=== PATIENT | male | born 1950 | race Caucasian/White ===

== ENCOUNTER 2023-12-28 21:49 | Inpatient (IN) | payer MEDICARE, OTHER, SELFPAY ==
[2023-12-28 14:54] VITALS: BP 143/79
[2023-12-28 15:17] LABS: % Basophils 0.2 % (0-2); % Eosinophils 0.4 % (0-6); % Immature Granulocytes 0.2 % (0-0.5); % Lymphocytes 20.8 % (20.5-51.1); % Monocytes 12.2 % (1.7-9.3); % Neutrophils 66.2 % (42.2-75.2); Absolute Lymphocytes 1.9 10^3/uL (1.2-3.4); Absolute Monocytes 1.1 10^3/uL (0.1-0.6); Hematocrit 41.5 % (39.0-52.0); Mean Corp Hgb Conc. 33.7 g/dL (33.0-37.0); Mean Corpuscular Hgb 32.1 pg (27.0-31.0); Mean Corpuscular Volume 95.2 fL (80.0-94.0); Mean Platelet Volume 9.3 fL (7.4-10.4); Nucleated Red Blood Cells % 0 % (-); Platelet Count 180 10^3/uL (130-400); Red Blood Cell Count 4.36 10^6/uL (4.70-6.10); Red Cell Dist. Width 12.8 % (11.5-14.5); White Blood Cell Count 9.1 10^3/uL (4.8-10.8)
[2023-12-28 15:33] LABS: COVID-19 Antigen Negative (Negative)
[2023-12-28 15:36] LABS: ALT (SGPT) 30 U/L (0-50); AST (SGOT) 34 U/L (17-59); Albumin 3.9 g/dl (3.5-5.0); Alkaline Phosphatase 78 U/L (38-126); Blood Urea Nitrogen 13 mg/dl (9-20); Calcium 8.9 mg/dl (8.4-10.2); Carbon Dioxide 29 mmol/L (22-30); Chloride 102 mmol/L (98-107); Glucose 100 mg/dl (70-99); Potassium 4.3 mmol/L (3.5-5.1); Sodium 136 mmol/L (135-145); Total Protein 6.7 g/dl (6.3-8.2); eGFR > 60.00
[2023-12-28] MEDS: DECADRON 8 MG IV (18:20)
[2023-12-28] MEDS: NSS 500 IV (18:26)
[2023-12-28] MEDS: DUONEB 3 ML INHALATION (18:26)
[2023-12-28 18:29] LABS: D-Dimer 0.73 ug/mlFEU (0.00-0.50)
[2023-12-28 19:27] VITALS: BP 137/71
--- NOTE | 2023-12-28 20:21 | ED.GENMED ---
Addendum entered and electronically signed by Jann Hightower MD 12/31/23 06:06:
Discussed antibiotic choices with patient and . Allergic to penicillin. This is caused a rash. Not even 100% sure this was the primary cause of the rash. Feel a cephalosporin would be safe. Risk-benefit explained
Original Note:
History of Present Illness
General
Chief Complaint: Breathing Problem
Source: patient and spouse
Exam Limitations: none
Time Seen by Provider: 12/28/23 17:54
Travel History
Have you had any contact with someone who has COVID-19?: No
Do you have any symptoms of coronavirus? Fever > 100 degrees, chills, cough, shortness of breath, sore throat, loss of taste or smell, muscle aches, or headache?: Yes
Symptoms:: cough
History of Present Illness
History of Present Illness:
Patient being treated for pneumonia with azithromycin. Symptoms have progressed however. Increased shortness of breath increased cough.
Past History
Past History
ED Past Medical History: HTN and Other (Crohn's disease)
Social History
Tobacco: Non-smoker
Personal:
Living: with family
Review of Systems
Review of Systems
All Other Systems: Not applicable
Constitutional: Reports chills
Respiratory: Reports cough; Denies hemoptysis
Cardiac: Reports no symptoms
ABD/GI: Reports no symptoms
Phy Exam
Physical Exam
Physical Exam:
GENERAL: Alert and oriented in no apparent distress
EYE: Orbits normal.
NECK: Supple, no significant adenopathy.
ENT: Pharynx without erythema
CARDIAC: Regular rate and rhythm without any obvious murmurs.
LUNGS: Minimal tachypnea at rest. Diffuse expiratory rhonchi with some rales at the left base. Expiratory wheezing
ABDOMEN: Soft, without focal tenderness or distention
NEUROLOGICAL: Alert and oriented , grossly non-focal
SKIN: Warm and dry, no rash or lesion, no discoloration, skin intact.
MUSCULOSKELETAL: No edema,no deformity.Good color
PSYCH: Normal and appropriate interaction.
Scores
Heart Failure Risk
Heart Failure Risk Score: Not Applicable
Course
Orders/Labs/Results
Orders:
Orders
12/28/23 15:04
COVID-19 Antigen Urgent
Source: Nasal Swab
Complete Blood Count/With Diff Urgent
Comprehensive Metabolic Panel Urgent
INF RAPID [Influenza A+B Rapid Molecular] Urgent
HOME Source: Nasal Swab
Specimen Description:
12/28/23 18:01
IV Insert/Care/Rem.- Treatment PRN
0.9% Sodium Chloride 500 ml [Nss] 500 ml IV BOLUS
Dexamethasone Sod Phosphate [Decadron] 8 mg IV NOW STA
Ipratropium/Albuterol Sulfate [Duoneb] 3 ml INHALATION R NOW ONE
12/28/23 18:09
D-Dimer Urgent
12/28/23 18:45
CT Chest Pe Study Urgent
Comment:
Reason For Exam: sob. pos dimer
12/28/23 20:14
Doxycycline Hyclate [Vibramycin] 100 mg 0.9% Sodium Chloride 250 ml [Nss] 250 ml IV NOW
12/28/23 20:15
Blood Culture Q30M
HOME Source: Blood/Venous
Specimen Description:
12/28/23 20:19
LevoFLOXacin [Levaquin] 750 mg PO NOW STA
12/28/23 20:45
Blood Culture Q30M
HOME Source: Blood/Venous
Specimen Description:
Abnormal Lab Results
12/28/23 12/28/23
15:04 18:09
RBC 4.36 L 10^6/uL
(4.70-6.10)
MCV 95.2 H fL
(80.0-94.0)
MCH 32.1 H pg
(27.0-31.0)
Absolute Monos (auto) 1.1 H 10^3/uL
(0.1-0.6)
Monocytes % 12.2 H %
(1.7-9.3)
D-Dimer 0.73 H ug/mlFEU
(0.00-0.50)
Glucose 100 H mg/dl
(70-99)
Total Bilirubin 2.0 H mg/dl
(0.2-1.3)
12/28/23 15:04
12/28/23 15:04
Vital Signs
Initial and Last Documented VS:
Initial Vital Signs
Temp Pulse Resp BP Pulse Ox
98.7 F 75 20 143/79 94
12/28/23 14:54 12/28/23 14:54 12/28/23 14:54 12/28/23 14:54 12/28/23 14:54
Last Documented Vital Signs
Temp Pulse Resp BP Pulse Ox
98.7 F 116 22 137/71 92
12/28/23 14:54 12/28/23 18:44 12/28/23 18:44 12/28/23 19:27 12/28/23 19:30
*Radiology
Radiology exam reviewed: radiology read reviewed (Left lower lobe pneumonia)
*Pulse Oximetry
Patient hypoxic: no
*Critical Care Note
Total Time (30-74mins, 75-104mins- exclusive of procedures): Not Applicable
Update Note
Update Note:
Patient with persistent left lower lobe pneumonia progressing despite azithromycin. In the send patient is immunosuppressed from his Crohn's disease medications. Warrants admission and further care
ED Attending Note
-
Portions of this chart may have been created with voice recognition software.� Occasional wrong word or��sound alike� substitutions may have occurred due to the inherent limitations of voice recognition software.
Discharge Plan
Departure
Patient Disposition: Admit
Date of Disposition: 12/28/23
Time of Disposition: 20:22
Presentation/result/management discussed w/ accepting MD/DO: Hospitalist
Discharge Problem:
Persistent pneumonia
Prescriptions:
No Action
azithromycin 250 mg Tablet
0 mg PO .COMPLEX
Rx Instructions:
For 250 mg dose pack: take 500 mg today (day 1), then 250 mg for 4 days (days 2-5)
metoprolol succinate [Toprol XL] 50 mg Tablet Extended Release 24 Hr
50 mg PO DAILY
amlodipine [Norvasc] 5 mg Tablet
5 mg PO DAILY
famotidine [Pepcid] 20 mg Tablet
20 mg PO DAILY
Stelara 90 mg/mL Syringe
90 mg SC Q6W
Myrbetriq 50 mg Tablet Extended Release 24 Hr
50 mg PO DAILY
Referrals:
Neelam Ramsey MD [Family Provider] -
Interventions
Interventions:
*Risk Screen - Suicide Last Done: 12/28/23 14:54
*General Assessment Last Done: 12/28/23 14:54
*Neglect/Abuse Screening Last Done: 12/28/23 14:54
ED- Cardiac Assessment Last Done: 12/28/23 19:45
ED- Pulmonary Assessment Last Done: 12/28/23 19:45
--- NOTE | 2023-12-28 20:39 | ED.GENMED ---
History of Present Illness
General
Chief Complaint: Breathing Problem
Time Seen by Provider: 12/28/23 17:54
Travel History
Have you had any contact with someone who has COVID-19?: No
Do you have any symptoms of coronavirus? Fever > 100 degrees, chills, cough, shortness of breath, sore throat, loss of taste or smell, muscle aches, or headache?: Yes
Symptoms:: cough
Past History
Past History
ED Past Medical History: HTN and Other (Crohn's disease)
Social History
Tobacco: Non-smoker
Personal:
Living: with family
Course
Orders/Labs/Results
Orders:
Orders
12/28/23 15:04
COVID-19 Antigen Urgent
Source: Nasal Swab
Complete Blood Count/With Diff Urgent
Comprehensive Metabolic Panel Urgent
INF RAPID [Influenza A+B Rapid Molecular] Urgent
HOME Source: Nasal Swab
Specimen Description:
12/28/23 18:01
IV Insert/Care/Rem.- Treatment PRN
0.9% Sodium Chloride 500 ml [Nss] 500 ml IV BOLUS
Dexamethasone Sod Phosphate [Decadron] 8 mg IV NOW STA
Ipratropium/Albuterol Sulfate [Duoneb] 3 ml INHALATION R NOW ONE
12/28/23 18:09
D-Dimer Urgent
12/28/23 18:45
CT Chest Pe Study Urgent
Comment:
Reason For Exam: sob. pos dimer
12/28/23 20:14
Doxycycline Hyclate [Vibramycin] 100 mg 0.9% Sodium Chloride 250 ml [Nss] 250 ml IV NOW
12/28/23 20:15
Blood Culture Q30M
HOME Source: Blood/Venous
Specimen Description:
12/28/23 20:19
LevoFLOXacin [Levaquin] 750 mg PO NOW STA
12/28/23 20:38
CefTRIAXone [Rocephin] 1,000 mg IV NOW STA
Doxycycline 100 mg IVPB NOW Doxycycline Hyclate [Vibramycin] 100 mg 0.9% Sodium Chloride 250 ml [Nss] 250 ml IV NOW
12/28/23 20:45
Blood Culture Q30M
HOME Source: Blood/Venous
Specimen Description:
Abnormal Lab Results
12/28/23 12/28/23
15:04 18:09
RBC 4.36 L 10^6/uL
(4.70-6.10)
MCV 95.2 H fL
(80.0-94.0)
MCH 32.1 H pg
(27.0-31.0)
Absolute Monos (auto) 1.1 H 10^3/uL
(0.1-0.6)
Monocytes % 12.2 H %
(1.7-9.3)
D-Dimer 0.73 H ug/mlFEU
(0.00-0.50)
Glucose 100 H mg/dl
(70-99)
Total Bilirubin 2.0 H mg/dl
(0.2-1.3)
12/28/23 15:04
12/28/23 15:04
Vital Signs
Initial and Last Documented VS:
Initial Vital Signs
Temp Pulse Resp BP Pulse Ox
98.7 F 75 20 143/79 94
12/28/23 14:54 12/28/23 14:54 12/28/23 14:54 12/28/23 14:54 12/28/23 14:54
Last Documented Vital Signs
Temp Pulse Resp BP Pulse Ox
98.7 F 116 22 137/71 92
12/28/23 14:54 12/28/23 18:44 12/28/23 18:44 12/28/23 19:27 12/28/23 19:30
Update Note
Update Note:
Patient's penicillin allergy is a rash while in the hospital for 30 days. Totally unsure whether this was even the cause of the rash. It was not a life-threatening allergic reaction. Feel cephalosporin is reasonable. Also will add doxycycline.
Discussed with hospitalist. Also discussed with family. Was considering a Levaquin but with the azithromycin and QT possibilities feel the above is a better choice
ED Attending Note
-
Portions of this chart may have been created with voice recognition software.� Occasional wrong word or��sound alike� substitutions may have occurred due to the inherent limitations of voice recognition software.
Discharge Plan
Departure
Patient Disposition: Admit
Date of Disposition: 12/28/23
Time of Disposition: 20:22
Presentation/result/management discussed w/ accepting MD/DO: Hospitalist
Discharge Problem:
Persistent pneumonia
Prescriptions:
No Action
azithromycin 250 mg Tablet
0 mg PO .COMPLEX
Rx Instructions:
For 250 mg dose pack: take 500 mg today (day 1), then 250 mg for 4 days (days 2-5)
metoprolol succinate [Toprol XL] 50 mg Tablet Extended Release 24 Hr
50 mg PO DAILY
amlodipine [Norvasc] 5 mg Tablet
5 mg PO DAILY
famotidine [Pepcid] 20 mg Tablet
20 mg PO DAILY
Stelara 90 mg/mL Syringe
90 mg SC Q6W
Myrbetriq 50 mg Tablet Extended Release 24 Hr
50 mg PO DAILY
Referrals:
Neelam Ramsey MD [Family Provider] -
Interventions
Interventions:
*Risk Screen - Suicide Last Done: 12/28/23 14:54
*General Assessment Last Done: 12/28/23 14:54
*Neglect/Abuse Screening Last Done: 12/28/23 14:54
ED- Cardiac Assessment Last Done: 12/28/23 19:45
ED- Pulmonary Assessment Last Done: 12/28/23 19:45
--- NOTE | 2023-12-28 21:16 | HPS.HSE ---
Family Physician
-
Family Physician: Neelam Ramsey MD
Chief Complaint
-
Cough
History of Present Illness
Patient is a 73y M with PMH significant for Crohn's disease, HTN and CKD who presents to ED complaining of cough x 4-5 days. Patient states that his symptoms started last with cough, sore throat and runny nose. He was seen by his PCP
the following day prescribed a Z-Pack. Patient states that his symptoms have since progressed. His cough is more severe and productive of thick. yellow mucus. He has had difficulty sleeping at night due to paroxysms of cough. He denies any
fevers / chills. No chest pain. No GI or complaints. Patient denies any specific sick contacts, recent travel, etc.
Medical History
Past Medical History
Past Medical History: Reports Other
Additional Past Medical History:
Crohn's Disease
Hypertension
CKD III
BPH
SHONA on CPAP
Past Surgical History: Reports Other
Additional Past Surgical History:
Total Colectomy
Multiple Ostomy Revisions
T&A
MOHS surgeries
Left TKA
Social History
Tobacco: Former Smoker (Quit smoking 12 years ago.)
Alcohol: Occasional
Drug: None
Personal:
Living: With Family
Family History
Family History: Not pertinent
Allergies / Home Medications
Allergies reflects when Allergies were last updated in [facility].
Home Medications with original date entered in [facility]
Allergy/Medication List:
Allergies
Allergy/AdvReac Type Severity Reaction Status Date / Time
mesalamine [From Pentasa] Allergy Rash Verified 12/28/23 14:53
olmesartan [From Benicar] Allergy Rash Verified 12/28/23 14:53
Penicillins Allergy Rash Verified 12/28/23 14:53
Sulfa (Sulfonamide Allergy Rash Verified 12/28/23 14:53
Antibiotics)
Home Medications
acetaminophen 325 mg tablet (Tylenol) 650 mg PO Q4HPRN PRN mild pain 12/28/23
amlodipine 5 mg tablet (Norvasc) 7.5 mg PO DAILY 12/28/23
azithromycin 250 mg tablet 0 mg PO .COMPLEX 12/28/23
codeine 20 mg-guaifenesin 200 mg/5 mL oral liquid 5 ml PO Q6HPRN PRN cough 12/28/23
cranberry 400 mg capsule 400 mg PO DAILY 12/28/23
cyanocobalamin (vitamin B-12) 1,000 mcg tablet 1,000 mcg PO DAILY 12/28/23
eplerenone 50 mg tablet 50 mg PO QPM 12/28/23
famotidine 20 mg tablet (Pepcid) 20 mg PO BID 12/28/23
guaifenesin 600 mg tablet, extended release 12 hr (Mucinex) 600 mg PO DAILY 12/28/23
loperamide 2 mg tablet 4 mg PO BID 12/28/23
metoprolol succinate 50 mg tablet,extended release 24 hr (Toprol XL) 50 mg PO DAILY 12/28/23
mirabegron 50 mg tablet,extended release 24 hr (Myrbetriq) 50 mg PO DAILY 12/28/23
solifenacin 10 mg tablet (Vesicare) 10 mg PO QPM 12/28/23
tadalafil 5 mg tablet (Cialis) 5 mg PO DAILY 12/28/23
therapeutic multivitamin 1 tab PO DAILY 12/28/23
ustekinumab 90 mg/mL subcutaneous syringe (Stelara) 90 mg SC Q6W 12/28/23
vitamins A,C,F-owiv-efiurh 2,148 mcg-113 mg-45 mg-17.4 mg tablet (PreserVision AREDS) 2 tab PO BID 12/28/23
Review of Systems
-
History Source: Patient
A 12 point ROS was completed and negative except as noted: Yes
Constitutional: Reports Fatigue; Denies Fever or Chills
EENT: Reports Sore Throat and Runny Nose
Respiratory: Reports Cough and Trouble Breathing; Denies Hemoptysis
Cardiac: Denies Chest Pain, Diaphoresis or Palpitations
Abdomen/GI: Denies Abdominal Pain, Nausea, Vomiting or Diarrhea
: Reports Frequency; Denies Dysuria, Flank Pain or Incontinence
Musculoskeletal: Denies Joint Pain
Neurological: Denies Dizzy or Headache
Psych: Denies Depression or Anxiety
Physical Exam
Vital Signs
Vital Signs
Temp Pulse Resp BP Pulse Ox
98.7 F 116 22 137/71 92
12/28/23 14:54 12/28/23 18:44 12/28/23 18:44 12/28/23 19:27 12/28/23 19:30
Physical Exam
General: Other (73y M in no acute distress.)
HEENT: Moist mucous membranes and PERRLA
Respiratory: Other (Coarse breath sounds at the L base. No wheezing / rales.)
Cardiac: S1/S2 and Regular Rhythm; No Murmur
GI: Soft, Non Tender, Non Distended, Normal Bowel Sounds and Other (Ostomy site is intact.)
Musculoskeletal: No Clubbing, No Cyanosis and No Edema
Neuro: AO x 3
Laboratory Results
-
12/28/23 15:04
12/28/23 15:04
Laboratory Results
Total Bilirubin 2.0 mg/dl (0.2-1.3) H 12/28/23 15:04
AST 34 U/L (17-59) 12/28/23 15:04
ALT 30 U/L (0-50) 12/28/23 15:04
Alkaline Phosphatase 78 U/L (38-126) 12/28/23 15:04
Impression/Plan
-
A/P: Patient is a 73y M with PMH significant for Crohn's disease, HTN and CKD who presents to ED complaining of cough x several days.
LLL Pneumonia
- Admit for further evaluation and treatment - having failed outpatient therapy with azithromycin.
- COVID / flu negative in the ED.
- IV abx with ceftriaxone and doxycycline.
- Supportive care with mucolytics, nebs, cough suppressant, etc.
- Follow for clinical improvement.
Benign Hypertension
Stable. Continue home meds with holding parameters.
CKD III
- Renal function appears normal at present.
- Follow for any changes.
Crohn's Disease
- Stable No acute GI symptoms / complaints.
- Routine ostomy care.
- Maintained on Stelara q 6 weeks - resume after discharge.
DVT Prophylaxis: Lovenox
Code Status: Full
[2023-12-28] MEDS: ROCEPHIN 1000 MG IV (21:58)
[2023-12-28] MEDS: VIBRAMYCIN 260 MG IV (22:32)
[2023-12-28 23:10] VITALS: BMI 28.5
[2023-12-29] MEDS: VENTOLIN NEBULES 2.5 MG INH ×2 (05:54→18:30)
[2023-12-29 06:15] LABS: Hematocrit 39.1 % (39.0-52.0); Hemoglobin 13.7 g/dL (13.0-18.0); Mean Corpuscular Hgb 31.8 pg (27.0-31.0); Mean Corpuscular Volume 90.7 fL (80.0-94.0); Mean Platelet Volume 9.3 fL (7.4-10.4); Platelet Count 203 10^3/uL (130-400); Red Blood Cell Count 4.31 10^6/uL (4.70-6.10); Red Cell Dist. Width 12.6 % (11.5-14.5); White Blood Cell Count 10.3 10^3/uL (4.8-10.8)
[2023-12-29 06:42] LABS: Blood Urea Nitrogen 18 mg/dl (9-20); Calcium 9.4 mg/dl (8.4-10.2); Carbon Dioxide 25 mmol/L (22-30); Chloride 102 mmol/L (98-107); Estimated Creatinine Clearance 67 ml/min; Glucose 156 mg/dl (70-99); Potassium 3.9 mmol/L (3.5-5.1); Sodium 141 mmol/L (135-145); eGFR > 60.00
[2023-12-29] MEDS: MUCINEX 1200 MG PO ×2 (09:09→21:26)
[2023-12-29] MEDS: TOPROL XL 50 MG PO (09:09)
[2023-12-29] MEDS: PEPCID 20 MG PO ×2 (09:10→21:26)
[2023-12-29] MEDS: NORVASC 7.5 MG PO (09:10)
--- NOTE | 2023-12-29 09:35 | W.PN.HOSP.TC ---
Today's Communication/Plan
-
continue current plan of care
Assessment / Plan
Assessment / Plan
Assessment:
LLL Pneumonia
- Admit for further evaluation and treatment - having failed outpatient therapy with azithromycin.
- COVID/flu negative in the ED.
- IV Abx with ceftriaxone and doxycycline, day 1
- Supportive care with mucolytics, nebs, cough suppressant, etc.
- Follow for clinical improvement.
Benign Hypertension
- Stable.�continue home meds with holding parameters.
CKD III
- Renal function appears normal at present.
- Follow for any changes.
Crohn's Disease
- Stable. No acute GI symptoms / complaints.
- Routine ostomy care.
- Maintained on Stelara q 6 weeks - resume after discharge.
- continue Imodium
DVT Prophylaxis:�Lovenox
Code Status:�Full
Anticipated Discharge: Within 24 hours
Subjective/Interval History
-
Date of Service: December 29, 2023
he reports improvement in SOB, less cough, less fatigue
Objective Data
-
Labs:
Laboratory Results
12/29/23
05:49
WBC 10.3
Hgb 13.7
Hct 39.1
Plt Count 203
Sodium 141
Potassium 3.9
Chloride 102
Carbon Dioxide 25
BUN 18
Creatinine 1.0
Glucose 156 H
Calcium 9.4
Vital Signs:
Vital Signs
Temp Pulse Resp BP Pulse Ox
98.4 F 116 22 137/71 94
12/29/23 08:40 12/28/23 18:44 12/28/23 18:44 12/28/23 19:27 12/29/23 08:40
Physical Exam
-
General: No Apparent Distress
HEENT: Normocephalic and Atraumatic
Respiratory: Rhonchi and Decreased Breath Sounds; Negative Wheezes
Cardiac: Regular Rhythm and S1/S2
GI: Soft
Genito-urinary: No Costovertebral Tender
Musculoskeletal: No Edema
Neuro: AO x 3
Hematologic / Lymphatic: No Lymphadenopathy
Psych: Calm
Data Reviewed
-
Total Time Spent with Patient (in minutes): 45
Labs: Labs Reviewed by me
[2023-12-29] MEDS: THERAGRAN 1 TABLET PO (10:33)
[2023-12-29] MEDS: VIBRAMYCIN 260 MG IV (10:33)
[2023-12-29] MEDS: IMODIUM 4 MG PO ×2 (10:33→21:25)
[2023-12-29] MEDS: MYRBETRIQ EXTENDED RELEASE 50 MG PO (14:47)
[2023-12-29] MEDS: INSPRA 50 MG PO (18:13)
[2023-12-29] MEDS: LOVENOX 40 MG SC (18:14)
[2023-12-29] MEDS: DETROL LA 4 MG PO (18:14)
[2023-12-29 21:13] VITALS: BP 156/78
[2023-12-29] MEDS: STERILE WATER FOR INJECTION 10 ML IV (21:26)
[2023-12-29] MEDS: VIBRAMYCIN 100 MG PO (21:26)
[2023-12-29] MEDS: ROCEPHIN 1000 MG IV (21:26)
[2023-12-29 23:23] VITALS: BP 126/77; BP 136/77; BP 142/76; PULSE 101; PULSE 76; PULSE 88
[2023-12-30 05:25] VITALS: BMI 28.7
[2023-12-30 07:30] VITALS: BP 128/75
[2023-12-30 07:51] LABS: Hematocrit 35.1 % (39.0-52.0); Hemoglobin 12.2 g/dL (13.0-18.0); Mean Corp Hgb Conc. 34.8 g/dL (33.0-37.0); Mean Corpuscular Hgb 31.6 pg (27.0-31.0); Mean Corpuscular Volume 90.9 fL (80.0-94.0); Mean Platelet Volume 9.5 fL (7.4-10.4); Platelet Count 205 10^3/uL (130-400); Red Blood Cell Count 3.86 10^6/uL (4.70-6.10)
[2023-12-30] MEDS: IMODIUM 4 MG PO (08:37)
[2023-12-30] MEDS: THERAGRAN 1 TABLET PO (08:38)
[2023-12-30] MEDS: PEPCID 20 MG PO (08:38)
[2023-12-30] MEDS: MUCINEX 1200 MG PO (08:38)
[2023-12-30] MEDS: TOPROL XL 50 MG PO (08:38)
[2023-12-30] MEDS: NORVASC 7.5 MG PO (08:38)
[2023-12-30] MEDS: VIBRAMYCIN 100 MG PO (08:38)
[2023-12-30 08:50] LABS: Blood Urea Nitrogen 22 mg/dl (9-20); Calcium 8.6 mg/dl (8.4-10.2); Carbon Dioxide 25 mmol/L (22-30); Chloride 106 mmol/L (98-107); Estimated Creatinine Clearance 61 ml/min; Glucose 90 mg/dl (70-99); Potassium 3.8 mmol/L (3.5-5.1); Sodium 141 mmol/L (135-145); eGFR > 60.00
--- NOTE | 2023-12-30 10:10 | W.PN.HOSP.TC ---
Today's Communication/Plan
-
dc home
PCP f/u 1 week
Assessment / Plan
Assessment / Plan
Assessment:
LLL Pneumonia
- Admit for further evaluation and treatment - having failed outpatient therapy with azithromycin.
- COVID/flu negative in the ED.
- DC on Cefdinir/Doxy to complete 7 total days
- Supportive care with mucolytics, nebs, cough suppressant, etc.
- Follow for clinical improvement.
Benign Hypertension
- Stable.�continue home meds with holding parameters.
CKD III
- Renal function appears normal at present.
- Follow for any changes.
Crohn's Disease
- Stable. No acute GI symptoms / complaints.
- Routine ostomy care.
- Maintained on Stelara q 6 weeks - resume after discharge.
- continue Imodium
DVT Prophylaxis:�Lovenox
Code Status:�Full
More than 30 minutes spent in discharge including
Final examination of the patient
Summarizing hospital stay
Instructions for continuing care to all relevant caregivers
Preparation of discharge records, prescriptions, and referral forms
Total time spent (in minutes): 40
Anticipated Discharge: Today
Subjective/Interval History
-
Date of Service: December 30, 2023
feels well no complaints
Objective Data
-
Labs:
Laboratory Results
12/30/23 12/30/23
07:05 07:06
WBC 12.0 H
Hgb 12.2 L
Hct 35.1 L
Plt Count 205
Sodium 141
Potassium 3.8
Chloride 106
Carbon Dioxide 25
BUN 22 H
Creatinine 1.1
Glucose 90
Calcium 8.6
Vital Signs:
Vital Signs
Temp Pulse Resp BP Pulse Ox
98.4 F 80 18 128/75 92
12/30/23 07:30 12/30/23 07:30 12/30/23 07:30 12/30/23 07:30 12/30/23 07:30
I&O
12/29/23 12/30/23 12/31/23
06:59 06:59 06:59
Intake Total 480 / 480
Balance 480 / 480
Physical Exam
-
General: No Apparent Distress
HEENT: Normocephalic and Atraumatic
Respiratory: Negative Wheezes
Cardiac: Regular Rhythm and S1/S2
GI: Soft
Genito-urinary: No Costovertebral Tender
Musculoskeletal: No Edema
Neuro: AO x 3
Hematologic / Lymphatic: No Lymphadenopathy
Psych: Calm
Data Reviewed
-
Total Time Spent with Patient (in minutes): 45
Labs: Labs Reviewed by me
[2023-12-30] MEDS: VENTOLIN NEBULES 2.5 MG INH (10:13)
--- NOTE | 2023-12-30 10:15 | W.DS.TRANS ---
DC Summary - Home Health Travel Pt
-
Discharge Instructions:
Discharge Diagnosis/Procedures community acquired pneumonia
Diet Regular
Activity As tolerated
Bathing Restrictions None
Instructions:
Stand-Alone Forms:
Changes to Home Medications: Yes
Discharge Medications:
DC Medications w/original date entered in [employer]
acetaminophen 325 mg tablet (Tylenol) 650 mg PO Q4HPRN PRN mild pain 12/28/23
amlodipine 5 mg tablet (Norvasc) 7.5 mg PO DAILY Blood Pressure 12/28/23
codeine 20 mg-guaifenesin 200 mg/5 mL oral liquid 5 ml PO Q6HPRN PRN cough 12/28/23
cranberry 400 mg capsule 400 mg PO DAILY Supplement 12/28/23
cyanocobalamin (vitamin B-12) 1,000 mcg tablet 1,000 mcg PO DAILY Supplement 12/28/23
eplerenone 50 mg tablet 50 mg PO QPM Heart Disease/Condition 12/28/23
famotidine 20 mg tablet (Pepcid) 20 mg PO BID Gastrointestinal Issue 12/28/23
guaifenesin 600 mg tablet, extended release 12 hr (Mucinex) 600 mg PO DAILY Cough 12/28/23
loperamide 2 mg tablet 4 mg PO BID diarrhea 12/28/23
metoprolol succinate 50 mg tablet,extended release 24 hr (Toprol XL) 50 mg PO DAILY Heart Disease/Condition 12/28/23
mirabegron 50 mg tablet,extended release 24 hr (Myrbetriq) 50 mg PO DAILY Urinary Issue 12/28/23
solifenacin 10 mg tablet (Vesicare) 10 mg PO QPM Urinary Issue 12/28/23
tadalafil 5 mg tablet (Cialis) 5 mg PO DAILY bph 12/28/23
therapeutic multivitamin 1 tab PO DAILY Supplement 12/28/23
ustekinumab 90 mg/mL subcutaneous syringe (Stelara) 90 mg SC Q6W crohn's disease 12/28/23
vitamins A,C,Z-aowp-uwgjtd 2,148 mcg-113 mg-45 mg-17.4 mg tablet (PreserVision AREDS) 2 tab PO BID Supplement 12/28/23
albuterol sulfate 90 mcg/actuation aerosol inhaler 2 puff inhalation Q6H PRN shortness of breath or wheezing #8.5 grams 12/30/23
cefdinir 300 mg capsule 300 mg PO Q12 #12 caps 12/30/23
doxycycline hyclate 100 mg capsule 100 mg PO Q12 #12 caps 12/30/23
Home Medication Changes
Pending Results: No
Total time spent discharging patient (in min): 40
--- NOTE | 2023-12-30 11:21 | CM ---
manager assurance reviewed patient's chart and met with patient and patient lives with his spouse in a split level home, patient is independent with adl's and ambulation, no dme. Deyanira has a perscription plan and uses [facility] pharmacy.
PCP: Neelam Ramsey
Plan; Home today no needs.
[2023-12-30] MEDS: OMNICEF 300 MG PO (11:40)
== END 2023-12-30 12:24 | disposition home or self-care (01) | DRG 194 ==
LOC: 4 WEST ACU 21:49
PROVIDERS: Emergency Medicine; ADMITTING PHYSICIAN Hospitalist; ATTENDING PHYSICIAN Internal Medicine; EMERGENCY PHYSICIAN Emergency Medicine; FAMILY PHYSICIAN Emergency Medicine
DX: J18.9 Pneumonia, unspecified organism (principal); K50.90 Crohn's disease, unspecified, without complications; N18.32 Chronic kidney disease, stage 3b; I12.9 Hypertensive chronic kidney disease with stage 1 through stage 4 chronic kidney disease, or unspecified chronic kidney disease; Z87.891 Personal history of nicotine dependence; Z11.52 Encounter for screening for COVID-19
CPT/HCPCS: 71275; 80048; 80053; 85025; 85027; 85379; 87040; 87502; 87811; 94640; 96361; 96374; 99285; Q9967

== ENCOUNTER → 2024-01-05 09:50 | Outpatient (REF) | payer MEDICARE, OTHER, SELFPAY ==
[2024-01-05 13:18] LABS: % Basophils 0.5 % (0-2); % Immature Granulocytes 0.8 % (0-0.5); % Lymphocytes 29.8 % (20.5-51.1); % Monocytes 10.3 % (1.7-9.3); % Neutrophils 56.6 % (42.2-75.2); Absolute Eosinophils 0.2 10^3/uL (0-0.7); Absolute Immature Granulocytes 0.1 10^3/uL (0-0.05); Absolute Lymphocytes 2.3 10^3/uL (1.2-3.4); Absolute Monocytes 0.8 10^3/uL (0.1-0.6); Absolute Neutrophils 4.4 10^3/uL (1.4-6.5); Hematocrit 40.4 % (39.0-52.0); Hemoglobin 13.9 g/dL (13.0-18.0); Mean Corp Hgb Conc. 34.4 g/dL (33.0-37.0); Mean Corpuscular Hgb 32.2 pg (27.0-31.0); Mean Corpuscular Volume 93.5 fL (80.0-94.0); Mean Platelet Volume 9.2 fL (7.4-10.4); Nucleated Red Blood Cells % 0 % (-); Platelet Count 354 10^3/uL (130-400); Red Blood Cell Count 4.32 10^6/uL (4.70-6.10); White Blood Cell Count 7.7 10^3/uL (4.8-10.8)
== END ==
LOC: HWLAB 09:50
PROVIDERS: ATTENDING PHYSICIAN Internal Medicine; FAMILY PHYSICIAN Emergency Medicine
DX: J18.9 Pneumonia, unspecified organism (principal)
CPT/HCPCS: 36415; 85025

== ENCOUNTER → 2024-02-09 | Outpatient (REF) | payer MEDICARE, OTHER, SELFPAY | LOC: DHSLP | PROVIDERS: ATTENDING PHYSICIAN Internal Medicine Critical Care Medicine; FAMILY PHYSICIAN Emergency Medicine | DX: G47.33 Obstructive sleep apnea (adult) (pediatric) (principal) | CPT/HCPCS: 95800 ==

== ENCOUNTER → 2024-02-15 14:02 | Outpatient (REF) | payer MEDICARE, OTHER, SELFPAY | LOC: HWRAD 14:02 | PROVIDERS: ATTENDING PHYSICIAN Emergency Medicine | DX: J18.9 Pneumonia, unspecified organism (principal) | CPT/HCPCS: 71046 ==

== ENCOUNTER → 2024-04-04 09:12 | Outpatient (REF) | payer MEDICARE, OTHER, SELFPAY | LOC: PAVMRI 09:12 | PROVIDERS: ATTENDING PHYSICIAN Physical Medicine & Rehabilitation; FAMILY PHYSICIAN Emergency Medicine | DX: M54.16 Radiculopathy, lumbar region (principal) | CPT/HCPCS: 72148 ==

== ENCOUNTER → 2024-04-14 12:59 | Outpatient (REF) | payer MEDICARE, OTHER, SELFPAY ==
[2024-04-14 17:23] LABS: Hemoglobin 14.2 g/dL (13.0-18.0)
[2024-04-14 17:47] LABS: INR 1.02; PT 13.4 Sec (11.4-14.6)
== END ==
LOC: HWRAD 12:59
PROVIDERS: ATTENDING PHYSICIAN Emergency Medicine
DX: J06.9 Acute upper respiratory infection, unspecified (principal); R23.3 Spontaneous ecchymoses
CPT/HCPCS: 36415; 71046; 85018; 85610

== ENCOUNTER → 2024-11-11 08:13 | Outpatient (REF) | payer MEDICARE, OTHER, SELFPAY ==
[2024-11-11 10:23] LABS: HDL Cholesterol 47 mg/dl; LDL Cholesterol, Calculated 51 mg/dl; Total Cholesterol 124 mg/dl (50-199); Triglyceride 131 mg/dl (10-149); Very Low Density Lipoprotein 26 mg/dl (0-30)
[2024-11-11 10:49] LABS: Glycohemoglobin (HgbA1c) 5.7 % (4.0-5.6)
[2024-11-11 10:52] LABS: TSH Reflex To Free T4 1.95 uIU/ml (0.47-4.68)
== END ==
LOC: HWLAB 08:13
PROVIDERS: ATTENDING PHYSICIAN Emergency Medicine
DX: R73.03 Prediabetes (principal); K50.113 Crohn's disease of large intestine with fistula; N18.31 Chronic kidney disease, stage 3a; I10 Essential (primary) hypertension; E66.9 Obesity, unspecified
CPT/HCPCS: 36415; 80061; 83036; 84443

== ENCOUNTER → 2024-11-18 10:03 | Outpatient (REF) | payer MEDICARE, OTHER, SELFPAY | LOC: HWRAD 10:03 | PROVIDERS: ATTENDING PHYSICIAN Emergency Medicine | DX: R91.1 Solitary pulmonary nodule (principal) | CPT/HCPCS: 71250 ==

== ENCOUNTER 2024-12-03 22:51 | Inpatient (IN) | payer MEDICARE, OTHER, SELFPAY ==
[2024-12-03 17:00] VITALS: BP 138/85
[2024-12-03 17:19] LABS: % Basophils 0.3 % (0-2); % Immature Granulocytes 0.2 % (0-0.5); % Lymphocytes 11.3 % (20.5-51.1); % Monocytes 7.5 % (1.7-9.3); % Neutrophils 80.7 % (42.2-75.2); Absolute Lymphocytes 1.2 10^3/uL (1.2-3.4); Absolute Monocytes 0.8 10^3/uL (0.1-0.6); Absolute Neutrophils 8.8 10^3/uL (1.4-6.5); Hematocrit 52.6 % (39.0-52.0); Hemoglobin 17.7 g/dL (13.0-18.0); Mean Corp Hgb Conc. 33.7 g/dL (33.0-37.0); Mean Corpuscular Hgb 31.6 pg (27.0-31.0); Mean Corpuscular Volume 93.8 fL (80.0-94.0); Mean Platelet Volume 9.3 fL (7.4-10.4); Nucleated Red Blood Cells % 0 % (-); Platelet Count 268 10^3/uL (130-400); Red Blood Cell Count 5.61 10^6/uL (4.70-6.10); Red Cell Dist. Width 13.1 % (11.5-14.5); White Blood Cell Count 10.9 10^3/uL (4.8-10.8)
[2024-12-03 17:40] LABS: ALT (SGPT) 38 U/L (0-50); AST (SGOT) 41 U/L (17-59); Albumin 5.9 g/dl (3.5-5.0); Alkaline Phosphatase 71 U/L (38-126); Blood Urea Nitrogen 36 mg/dl (9-20); Calcium 11.1 mg/dl (8.4-10.2); Carbon Dioxide 18 mmol/L (22-30); Chloride 99 mmol/L (98-107); Glucose 162 mg/dl (70-99); Lipase 64 U/L (23-300); Potassium 4.9 mmol/L (3.5-5.1); Sodium 140 mmol/L (135-145); Total Bilirubin 1.6 mg/dl (0.2-1.3); Total Protein 9.6 g/dl (6.3-8.2); eGFR 15.52
[2024-12-03] MEDS: NSS 500 IV (20:54)
[2024-12-03 20:56] VITALS: BP 119/86
[2024-12-03 21:13] VITALS: BP 125/81
--- NOTE | 2024-12-03 21:59 | HPS.HSE ---
Family Physician
-
Family Physician: Esther London
Chief Complaint
-
Diarrhea and cramps
History of Present Illness
This is a 74-year-old male with past medical history that is significant for Crohn's colitis status post multiple surgeries now with colectomy and end ileostomy, hypertension, BPH with chronic retention being followed by urology, presents to the
emergency department with approximately 1-1/2-day history of abdominal symptoms.
Patient reported that a had a vacation with her daughter that ended yesterday. Now both of them have symptoms. Patient developed diarrhea starting yesterday. He reports that he was changing his ostomy bag about once every hour. The output was
essentially a watery without any solid or pasty output. Usually he has a semiformed output from the ostomy. Each bag contains at least 500 mL. There was no blood. He has no rectal output and this is his baseline. Hours after developed the
diarrhea started having nausea and vomiting. The vomiting was nonbloody and nonbilious. He developed abdominal pain. He also developed muscle cramps in the lower extremities. Patient unable to tolerate p.o. and has not been having any intake for
about 24 hours. He denies feeling dizzy or lightheaded. He did take his antihypertensives last night. He also attempted antidiarrheal but vomited it. Patient reports that his urine output was scant. The color was yellow. We did give about 300
cc of urine on arrival in the emergency department. Denies having any fevers or chills. No recent Crohn's exacerbation.
In the emergency department he was afebrile, blood pressure was 125/81 and his pulse was 83. He has a white count of 10.9, his hemoglobin was 17.7 with normal platelet count. Electrolytes notable for bicarb of 18, BUN was 36 with a creatinine of
3.9. Glucose was normal. His total protein was 9.6 with an albumin of 6. LFTs otherwise unremarkable. A CT of the abdomen and pelvis shows postsurgical changes, fluid throughout small bowel with right abdominal small bowel dilated up to 4.4 cm
immediately proximal to a small bowel containing right inguinal hernia. Fluid present within more distal small bowel so no obstruction. Findings most likely reflect a viral enteritis. A significant small bowel obstruction is considered unlikely
given the presence of diarrhea. There was no hydronephrosis. There was a nonobstructing right upper pole renal stone. Bilateral renal cystic lesions. Moderate prostate enlargement. Urinary bladder and seminal vesicles unremarkable.
Medical History
Past Medical History
Past Medical History: Reports GERD and HTN
Additional Past Medical History:
Urinary retention
Crohn's colitis
Past Surgical History: Reports Bowel Resection
Social History
Tobacco: Non-smoker
Alcohol: None
Drug: None
Personal:
Living: With Family
Employment: Retired
Family History
Family History: Not pertinent
Allergies / Home Medications
Allergies reflects when Allergies were last updated in [facility].
Home Medications with original date entered in [facility]
Allergy/Medication List:
Allergies
Allergy/AdvReac Type Severity Reaction Status Date / Time
mesalamine [From Pentasa] Allergy Rash Verified 12/03/24 17:03
olmesartan [From Benicar] Allergy Rash Verified 12/03/24 17:03
Penicillins Allergy Rash Verified 12/03/24 17:03
Sulfa (Sulfonamide Allergy Rash Verified 12/03/24 17:03
Antibiotics)
Home Medications
acetaminophen 325 mg tablet (Tylenol) 650 mg PO Q4HPRN PRN mild pain 12/28/23
amlodipine 5 mg tablet (Norvasc) 7.5 mg PO DAILY Blood Pressure 12/28/23
codeine 20 mg-guaifenesin 200 mg/5 mL oral liquid 5 ml PO Q6HPRN PRN cough 12/28/23
cranberry 400 mg capsule 400 mg PO DAILY Supplement 12/28/23
cyanocobalamin (vitamin B-12) 1,000 mcg tablet 1,000 mcg PO DAILY Supplement 12/28/23
eplerenone 50 mg tablet 50 mg PO QPM Heart Disease/Condition 12/28/23
famotidine 20 mg tablet (Pepcid) 20 mg PO BID Gastrointestinal Issue 12/28/23
guaifenesin 600 mg tablet, extended release 12 hr (Mucinex) 600 mg PO DAILY Cough 12/28/23
loperamide 2 mg tablet 4 mg PO BID diarrhea 12/28/23
metoprolol succinate 50 mg tablet,extended release 24 hr (Toprol XL) 50 mg PO DAILY Heart Disease/Condition 12/28/23
mirabegron 50 mg tablet,extended release 24 hr (Myrbetriq) 50 mg PO DAILY Urinary Issue 12/28/23
solifenacin 10 mg tablet (Vesicare) 10 mg PO QPM Urinary Issue 12/28/23
tadalafil 5 mg tablet (Cialis) 5 mg PO DAILY bph 12/28/23
therapeutic multivitamin 1 tab PO DAILY Supplement 12/28/23
ustekinumab 90 mg/mL subcutaneous syringe (Stelara) 90 mg SC Q6W crohn's disease 12/28/23
vitamins A,C,H-ujap-ogbbfn 2,148 mcg-113 mg-45 mg-17.4 mg tablet (PreserVision AREDS) 2 tab PO BID Supplement 12/28/23
albuterol sulfate 90 mcg/actuation aerosol inhaler 2 puff inhalation Q6H PRN shortness of breath or wheezing #8.5 grams 12/30/23
cefdinir 300 mg capsule 300 mg PO Q12 #12 caps 12/30/23
doxycycline hyclate 100 mg capsule 100 mg PO Q12 #12 caps 12/30/23
Review of Systems
-
History Source: Patient
Constitutional: Reports No Symptoms
EENT: Reports No Symptoms
Respiratory: Reports No Symptoms
Cardiac: Reports No Symptoms
Abdomen/GI: Reports Abdominal Pain, Nausea, Vomiting and Diarrhea
: Reports No Symptoms
Musculoskeletal: Reports Muscle Pain
Skin: Reports No Symptoms
Neurological: Reports No Symptoms
Endocrine: Reports No Symptoms
Hematologic/Lymphatic: Reports No Symptoms
Psych: Reports No Symptoms
Physical Exam
Vital Signs
Vital Signs
Temp Pulse Resp BP Pulse Ox
97.5 F 83 18 125/81 94
12/03/24 17:00 12/03/24 21:13 12/03/24 21:13 12/03/24 21:13 12/03/24 21:13
Physical Exam
General: Well Developed, Well Nourished, No Apparent Distress and Comfortable
HEENT: NormoCephalic, Anicteric, Moist mucous membranes and Atraumatic
Respiratory: Clear
Cardiac: S1/S2 and Regular Rhythm
Breast: Deferred by me
GI: Soft, Non Tender, Non Distended and Ostomy
Rectal: Deferred by Provider
Genito-urinary: Deferred by me
Musculoskeletal: No Clubbing, No Cyanosis and No Edema
Skin: Warm and Dry
Neuro: AO x 3 and Nonfocal/grossly intact
Psych: Calm
Laboratory Results
-
12/03/24 17:08
12/03/24 17:08
Laboratory Results
Total Bilirubin 1.6 mg/dl (0.2-1.3) H 12/03/24 17:08
AST 41 U/L (17-59) 12/03/24 17:08
ALT 38 U/L (0-50) 12/03/24 17:08
Alkaline Phosphatase 71 U/L (38-126) 12/03/24 17:08
Lipase 64 U/L (23-300) 12/03/24 17:08
Data Reviewed
-
CT Scan: Report Reviewed by me
Lab Data: Labs Reviewed by me
Old Records: Reviewed
Impression/Plan
-
IMPRESSION:
74-year-old male with history of Crohn's colitis urinary retention who presents to the emergency department with abdominal symptoms including 1 year of days of severe watery diarrhea, nausea vomiting, decreased p.o. intake. Has family members with
similar symptoms and they were together for a vacation recently. Suspect acute viral gastroenteritis. Patient has no recent episodes of Crohn's exacerbation. He has a ileostomy with clear brown watery output which she states is changed the bag
about once every hour yesterday but it has slowed down today. He has no systemic inflammatory signs such as fever or leukocytosis. Complications include ROSALINO with a creatinine of 3.9 up from a baseline of around 1. Has a history of urinary
retention, claims decreased urine output, urine output in the ED is 300 cc. No nephrolithiasis, no hydronephrosis and no bladder distention on CT scan. Denies any NSAID use. Given the degree of diarrhea, erythrocytosis to 17.7, elevated total
protein of 9.6 and albumin of 6 suspect marked intravascular contraction.
PLAN:
1. ROSALINO - Suspect hyponatremia with intravascular contraction despite BUN being not quite as elevated. Cannot rule out obstruction entirely but no evidence right now.
- admit to med/surg
- IV fluids with 1/2 NS + 75 of bicarb for now at 150 ml/hr
- hold eplerenone
- no nsaids
- check u/a, urine lytes, protein and creatinine for gran casts, proteinuria and active sediments
- bladder scan protocol with straight cath / mnoroe depending on retention > 400 ml (has chronic bladder dysfunction being followed by urology)
- nephrology consultation
2. Gastroenteritis - suspect acute viral gastroenteritis based on history and CT scan findings. Unlikely crohns exacerbation. Unlikely Cdiff or bacterial colitis
- check stool norovirus/rotavirus
- check cdiff, wbc, cultures
- isolation for now
- loperamide prn
- IV fluids as above
- antiemetics and pain control
3. Crohns colitis - Has been stable and currently no systemic evidence of inflammation
- check esr/crp
- fecal calprotectin
4. Dehydration - Hypovolemia w/o tachycardia on beta blocakde. erythrocytosis and elevated albumin suggest volume contraction
- IV fluids and re-evaluate
DVT PPX - heparin sq
Code status - full code
--- NOTE | 2024-12-03 22:52 | ED.GENMED ---
History of Present Illness
General
Chief Complaint: Abdominal Symptoms
Source: patient and spouse
Exam Limitations: none
Time Seen by Provider: 12/03/24 19:38
History of Present Illness
History of Present Illness:
74-year-old male with 2 days of nausea vomiting diarrhea. Significant watery diarrhea in his ostomy. Crampy abdominal pain. No fever. Decreased urination since yesterday. No dysuria or frequency.
Past History
Past History
ED Past Medical History: HTN and Other (Crohn's disease)
ED Past Surgical History: Orthopedic and Other (Colostomy. Tonsillectomy)
Social History
Tobacco: Non-smoker
Personal:
Living: with family
Review of Systems
Review of Systems
All Other Systems: Not applicable
Constitutional: Denies fever
Respiratory: Reports no symptoms
Cardiac: Reports no symptoms
Phy Exam
Physical Exam
Physical Exam:
GENERAL: Alert and oriented in no apparent distress
EYE: Orbits normal.
NECK: Supple, no significant adenopathy.
ENT: Pharynx without erythema
CARDIAC: Regular rate and rhythm without any obvious murmurs.
LUNGS: Clear breath sounds,normal
ABDOMEN: Soft, without focal tenderness or distention. Ostomy with very watery stool. No suprapubic distention. No tenderness.
NEUROLOGICAL: Alert and oriented , grossly non-focal
SKIN: Warm and dry, no rash or lesion, no discoloration, skin intact.
MUSCULOSKELETAL: No edema,no deformity.Good color
PSYCH: Normal and appropriate interaction.
Course
Orders/Labs/Results
Orders:
Orders
12/03/24 17:08
Complete Blood Count/With Diff Urgent
Comprehensive Metabolic Panel Urgent
Lipase Urgent
12/03/24 19:45
CT Abd/pel Without Iv Or Oral Urgent
Comment:
Reason For Exam: Low back pain/abdominal pain/renal insufficiency
IV Insert/Care/Rem.- Treatment PRN
0.9% Sodium Chloride 500 ml [Nss] 500 ml IV BOLUS
12/03/24 20:04
Urinalysis Reflex To Culture Urgent
Date Specimen was Collected: 12/03/24
Time Specimen was Collected: 20:08
12/03/24 22:00
Flush (0.9% Sodium Chloride) [Flush (Nss)] See Dose Instructions IV PER PROTOCOL
12/03/24 22:18
Admit/Transfer Patient As Directed
Co-Sign Provider:
Level of Care: Inpatient admission
Assign to:: Medical/Surgical
Physician / Group: hospitalist
Diagnosis: renal failure, gastroenteritis, dehydration
Reason for Hospitalization: ROSALINO
Expected length of stay greater than two midnights?: Yes
ELOS- Estimated Length of Stay in days: 2
I certify the patient meets the requirements for IP care: Yes
PRN Pain Medication Management As Directed
May give lesser potent ordered pain med per pt: Yes
preference::
Protocol:: Medication orders for pain may be administered in a
manner that supports deferring to patient preference
when the pt is:
- Requesting an ordered lesser potent pain medication.
Least to most potent pain medications are defined
as: acetaminophen < NSAID < tramadol < opioids
(morphine, oxycodone, hydromorphone).
- Requesting a lesser dose of the same medication IF
ORDERED.
- Requesting a less intrusive route of administration
if both routes are prescribed by the provider (PO <
IV).
12/03/24 22:20
Code Status As Directed
Resuscitation Status: Full Code
12/03/24 22:29
Calprotectin, Fecal [S] Stat
Comment: obtain from ostomy
C difficile Antigen & Toxins Stat
HOME Source: Feces/Stool
Specimen Description:
Comment: obtain from ostomy
Norovirus by PCR Stat
HOME Source: Feces/Stool
Specimen Description:
Comment: obtain from ostomy
Stool Culture Stat
HOME Source: Feces/Stool
Specimen Description:
Comment: obtain from ostomy
Stool For WBC Stat
HOME Source: Feces/Stool
Specimen Description:
Comment: obtain from ostomy
Abnormal Lab Results
12/03/24
17:08
WBC 10.9 H 10^3/uL
(4.8-10.8)
Hct 52.6 H %
(39.0-52.0)
MCH 31.6 H pg
(27.0-31.0)
Absolute Neuts (auto) 8.8 H 10^3/uL
(1.4-6.5)
Absolute Monos (auto) 0.8 H 10^3/uL
(0.1-0.6)
Neutrophils % 80.7 H %
(42.2-75.2)
Lymphocytes % 11.3 L %
(20.5-51.1)
Carbon Dioxide 18 L mmol/L
(22-30)
BUN 36 H mg/dl
(9-20)
Creatinine 3.9 H mg/dL
(0.7-1.3)
Glucose 162 H mg/dl
(70-99)
Calcium 11.1 H mg/dl
(8.4-10.2)
Total Bilirubin 1.6 H mg/dl
(0.2-1.3)
Total Protein 9.6 H g/dl
(6.3-8.2)
Albumin 5.9 H g/dl
(3.5-5.0)
12/03/24 17:08
12/03/24 17:08
Vital Signs
Initial and Last Documented VS:
Initial Vital Signs
Temp Pulse Resp BP Pulse Ox
97.5 F 69 16 138/85 97
12/03/24 17:00 12/03/24 17:00 12/03/24 17:00 12/03/24 17:00 12/03/24 17:00
Last Documented Vital Signs
Temp Pulse Resp BP Pulse Ox
97.5 F 83 18 125/81 94
12/03/24 17:00 12/03/24 21:13 12/03/24 21:13 12/03/24 21:13 12/03/24 21:13
MDM/Problems Addressed
Differential Diagnosis Includes:
Patient with renal failure at least partially prerenal. Has a component of chronic urinary retention although this has been stable. Unlikely to be the major cause of this. We will not put a Herrera catheter in at this time but give IV fluids and
observe for the potential need for a Herrera catheter. Patient further workup for renal failure. Nothing to support bowel obstruction clinically
*Radiology
Radiology exam reviewed: radiology read reviewed (Most likely viral enteritis. Contracted gallbladder. Moderate prostate enlargement)
*Pulse Oximetry
Patient hypoxic: no
*Critical Care Note
Total Time (30-74mins, 75-104mins- exclusive of procedures): Not Applicable
Data Reviewed
Review of Other/Old Records Reveals: Labs, Records and Testing
ED Attending Note
-
Portions of this chart may have been created with voice recognition software.� Occasional wrong word or��sound alike� substitutions may have occurred due to the inherent limitations of voice recognition software.
Discharge Plan
Departure
Patient Disposition: Admit
Date of Disposition: 12/03/24
Time of Disposition: 21:17
Presentation/result/management discussed w/ accepting MD/DO: Hospitalist
Discharge Problem:
Enteritis, Dehydration, Renal failure, Chronic bladder retention
Prescriptions:
No Action
metoprolol succinate [Toprol XL] 50 mg Tablet Extended Release 24 Hr
50 mg PO DAILY
amlodipine [Norvasc] 5 mg Tablet
7.5 mg PO DAILY
famotidine [Pepcid] 20 mg Tablet
20 mg PO BID
Stelara 90 mg/mL Syringe
90 mg SC Q6W
Myrbetriq 50 mg Tablet Extended Release 24 Hr
50 mg PO DAILY
acetaminophen [Tylenol] 325 mg Tablet
650 mg PO Q4HPRN PRN (Reason: mild pain)
loperamide 2 mg Tablet
4 mg PO BID
cyanocobalamin (vitamin B-12) 1,000 mcg Tablet
1,000 mcg PO DAILY
therapeutic multivitamin Tablet
1 tab PO DAILY
cranberry 400 mg Capsule
400 mg PO DAILY
eplerenone 50 mg Tablet
50 mg PO QPM
tadalafil [Cialis] 5 mg Tablet
5 mg PO DAILY
solifenacin [Vesicare] 10 mg Tablet
10 mg PO QPM
codeine-guaifenesin 20-200 mg/5 mL Liquid
5 ml PO Q6HPRN PRN (Reason: cough)
PreserVision AREDS 2,148 mcg-113 mg-45 mg-17.4mg Tablet
2 tab PO BID
guaifenesin [Mucinex] 600 mg Tablet Extended Release 12hr
600 mg PO DAILY
doxycycline hyclate 100 mg Capsule
100 mg PO Q12 Qty: 12 0RF
cefdinir 300 mg Capsule
300 mg PO Q12 Qty: 12 0RF
Rx Instructions:
tolerated Rocephin well in hospital
albuterol sulfate 90 mcg/actuation HFA aerosol inhaler
2 puff inhalation Q6H PRN (Reason: shortness of breath or wheezing) Qty: 8.5 0RF
Referrals:
Esther London MD [Family Provider] -
Discharge Date and Time
Print Language: BELARUSIAN
[2024-12-04] MEDS: HEPARIN 5000 UNITS SC ×3 (01:09→17:18)
[2024-12-04 01:18] VITALS: BP 126/98
[2024-12-04] MEDS: LR 1000 IV (01:30)
[2024-12-04 01:44] LABS: Urine Albumin Trace (Neg - Trace); Urine Bilirubin Negative (Negative); Urine Character Slightly Cloudy (Clear); Urine Color Yellow; Urine Glucose Negative (Negative); Urine Ketone Negative (Negative); Urine Leukocyte 1+ (Negative); Urine Nitrite Negative (Negative); Urine Occult Blood Negative (Negative); Urine Specific Gravity 1.025 (<1.030); Urine Urobilinogen Negative (Neg - 1+)
[2024-12-04 01:52] LABS: Osmolality Urine 521 mOsm/kg (300-900); Urine Amorphous Seen; Urine Calcium Oxalate Crystals Seen; Urine Hyaline Cast >15 /LPF (0-2); Urine Mucus Many; Urine Squamous Cell >30 /LPF (Few)
[2024-12-04 01:53] LABS: Urine Bacteria Many (Negative)
[2024-12-04 01:54] LABS: Urine White Cell 26-30 /HPF (0-5)
[2024-12-04 02:12] LABS: Urine Protein 11 mg/dl; Urine Sodium < 5 mmol/L (30-90)
[2024-12-04] MEDS: SODIUM BICARBONATE 1075 MEQ IV ×3 (02:47→21:20)
[2024-12-04 05:59] LABS: Hematocrit 45.4 % (39.0-52.0); Hemoglobin 15.6 g/dL (13.0-18.0); Mean Corp Hgb Conc. 34.4 g/dL (33.0-37.0); Mean Corpuscular Hgb 32.1 pg (27.0-31.0); Mean Corpuscular Volume 93.4 fL (80.0-94.0); Mean Platelet Volume 9.5 fL (7.4-10.4); Platelet Count 237 10^3/uL (130-400); Red Blood Cell Count 4.86 10^6/uL (4.70-6.10); White Blood Cell Count 10.6 10^3/uL (4.8-10.8)
[2024-12-04 06:16] LABS: Blood Urea Nitrogen 43 mg/dl (9-20); Calcium 9.5 mg/dl (8.4-10.2); Carbon Dioxide 18 mmol/L (22-30); Chloride 100 mmol/L (98-107); Estimated Creatinine Clearance 20 ml/min; Glucose 120 mg/dl (70-99); Magnesium 2.1 mg/dl (1.6-2.3); Potassium 4.4 mmol/L (3.5-5.1); Sodium 136 mmol/L (135-145); eGFR 17.67
[2024-12-04 07:45] LABS: Erythrocyte Sed Rate 8 mm/hour (0-20)
[2024-12-04 08:02] VITALS: BP 108/81
[2024-12-04] MEDS: NORVASC 2.5 MG PO (08:02)
--- NOTE | 2024-12-04 08:20 | W.PN.HOSP.TC ---
Today's Communication/Plan
-
see bold
Assessment / Plan
Assessment / Plan
IMPRESSION:
74-year-old male with history of Crohn's colitis urinary retention who presents to the emergency department with abdominal symptoms including 1 year of days of severe watery diarrhea, nausea vomiting, decreased p.o. intake. Has family members with
similar symptoms and they were together for a vacation recently. Suspect acute viral gastroenteritis. Patient has no recent episodes of Crohn's exacerbation. He has a ileostomy with clear brown watery output which she states is changed the bag
about once every hour yesterday but it has slowed down today. He has no systemic inflammatory signs such as fever or leukocytosis. Complications include ROSALINO with a creatinine of 3.9 up from a baseline of around 1. Has a history of urinary
retention, claims decreased urine output, urine output in the ED is 300 cc. No nephrolithiasis, no hydronephrosis and no bladder distention on CT scan. Denies any NSAID use. Given the degree of diarrhea, erythrocytosis to 17.7, elevated total
protein of 9.6 and albumin of 6 suspect marked intravascular contraction.
PLAN:
1. ROSALINO
- Prerenal due to dehydration and diarrhea
- hold eplerenone
- bladder scan protocol with straight cath / [place] depending on retention > 400 ml (has chronic bladder dysfunction being followed by urology)
- Seen by nephrology, continue IV fluids with 1/2 NS + 75 of bicarb for now at 100 ml/hr, trend creatinine, no nephrotoxic drugs/NSAIDs
2. Acute norovirus gastroenteritis
- isolation for now
- Supportive care
3. Crohns colitis - Has been stable and currently no systemic evidence of inflammation
-Stable, monitor
4. Dehydration
- Hypovolemia w/o tachycardia on beta blocakde
- IV fluids
5. Essential hypertension
Continue home toprol XL, amlodipine at reduced dose, hold eplerenone secondary to ROSALINO
6. Gastroesophageal reflux disease
Continue Pepcid & PPI
DVT PPX - heparin sq
Code status - full code
Total time spent to see the patient on the floor, examine the patient, review data and lab results, discuss treatment plan with patient, nursing staff around 45 minutes.
Physical Exam
General: No acute distress
HEENT: Normocephalic, Atraumatic, EOMI, MMM
Respiratory: Clear to Auscultation bilaterally
Cardiac: Normal S1/S2, Regular Rate and Rhythm
GI: Soft, Nontender, Nondistended, Normal Bowel Sounds
Ostomy with stool
Extremities: No Clubbing, Cyanosis, or Edema
Neuro: Nonfocal/Grossly Intact
Psych: Calm, Cooperative
Derm: No Visible lesions
Anticipated Discharge: > 48 hours
Subjective/Interval History
-
Date of Service: December 04, 2024
Nausea and vomiting resolved. Patient tolerated his diet. Diarrhea improved. No fever, no vomiting.
Objective Data
-
Labs:
Laboratory Results
12/04/24
05:31
WBC 10.6
Hgb 15.6
Hct 45.4
Plt Count 237
Sodium 136
Potassium 4.4
Chloride 100
Carbon Dioxide 18 L
BUN 43 H
Creatinine 3.5 H
Glucose 120 H
Calcium 9.5 D
Vital Signs:
Vital Signs
Temp Pulse Resp BP Pulse Ox
98.7 F 80 16 126/98 95
12/04/24 01:18 12/04/24 01:18 12/04/24 01:18 12/04/24 01:18 12/04/24 01:18
I&O
12/03/24 12/04/24 12/05/24
06:59 06:59 06:59
Intake Total 1839
Balance 1839
[2024-12-04 09:00] LABS: Phosphorus 6.2 mg/dl (2.5-4.5)
[2024-12-04] MEDS: MYRBETRIQ EXTENDED RELEASE 50 MG PO (09:06)
--- NOTE | 2024-12-04 09:42 | W.CON.NEPH ---
Consultation
-
Date/Time Consultation Requested: 12/04/24 0025
Date/Time Consultation Performed: 12/04/24 1000
Requesting Provider: Kavya Terrell
Performing Provider: Yu Wilson
Reason for Consultation: ROSALINO
Medical History
-
Chief Complaint: Diarrhea
History of Present Illness:
74-year-old male with past medical history that is significant for Crohn's colitis status post multiple surgeries now with colectomy and end ileostomy on Stelara, hypertension Metoprolol, Eplerenone, Amlodipine, BPH with chronic retention being
followed by urology at [facility] around 200-400cc,CKD [id number] cr 1.4 presents to the emergency department with approximately 1-1/2-day history of abdominal symptoms, diarrhea, n/v. Pt was on vacation with daughter for a week in [place] and
returned home on thursday since then He noticed starting with diarrhea and was changing his ostomy bag every hr and later he had nausea and vomiting and severe cramps of whole body. Denies any dizziness. He also noted decreased to no UOP. Daughter
with similar symptoms too. NO fever, CP or sob. HIs symptoms slowed down today and tolerating PO. Started to urinate too.
In ER labs show cr of 3.9, bicarb 18. His baseline cr 1.[address] showed possible partial SBO vs enteritis.
Past Medical History
HTN
GERD
Crohns
U retention
CKD3a
SHONA
OBesity
PUlm nodule
Pnacreatic cyst
Pre DM
vit B12 def
Thoracic aorta ectasia
RIght inguinal hernia
Past Surgical History: Bowel Resection, Tonsilectomy and Other ([facility] surg, wisdom teeth removal, left TKR)
Social History
Tobacco: Former Smoker
Alcohol: Occasional
Drug: None
Personal:
Living: With Family
Employment: Retired
Family History
Mother late onset CAD
brother with kidney disease -no details he knows
Allergies / Home Medications
Allergy/AdvReac Type Severity Reaction Status Date / Time
mesalamine [From Pentasa] Allergy Rash Verified 12/03/24 17:03
olmesartan [From Benicar] Allergy Rash Verified 12/03/24 17:03
Penicillins Allergy Rash Verified 12/03/24 17:03
Sulfa (Sulfonamide Allergy Rash Verified 12/03/24 17:03
Antibiotics)
�Medication �Instructions �Recorded �Confirmed �Type
acetaminophen 325 mg tablet 650 mg PO Q4HPRN PRN mild pain 12/28/23 12/28/23 History
(Tylenol)
amlodipine 5 mg tablet (Norvasc) 7.5 mg PO DAILY Blood Pressure 12/28/23 12/28/23 History
codeine 20 mg-guaifenesin 200 mg/5 5 ml PO Q6HPRN PRN cough 12/28/23 12/28/23 History
mL oral liquid
cranberry 400 mg capsule 400 mg PO DAILY Supplement 12/28/23 12/28/23 History
cyanocobalamin (vitamin B-12) 1,000 mcg PO DAILY Supplement 12/28/23 12/28/23 History
1,000 mcg tablet
eplerenone 50 mg tablet 50 mg PO QPM Heart 12/28/23 12/28/23 History
Disease/Condition
famotidine 20 mg tablet (Pepcid) 20 mg PO BID Gastrointestinal Issue 12/28/23 12/28/23 History
guaifenesin 600 mg tablet, 600 mg PO DAILY Cough 12/28/23 12/28/23 History
extended release 12 hr (Mucinex)
loperamide 2 mg tablet 4 mg PO BID diarrhea 12/28/23 12/28/23 History
metoprolol succinate 50 mg 50 mg PO DAILY Heart 12/28/23 12/28/23 History
tablet,extended release 24 hr Disease/Condition
(Toprol XL)
mirabegron 50 mg tablet,extended 50 mg PO DAILY Urinary Issue 12/28/23 12/28/23 History
release 24 hr (Myrbetriq)
solifenacin 10 mg tablet (Vesicare) 10 mg PO QPM Urinary Issue 12/28/23 12/28/23 History
tadalafil 5 mg tablet (Cialis) 5 mg PO DAILY bph 12/28/23 12/28/23 History
therapeutic multivitamin 1 tab PO DAILY Supplement 12/28/23 12/28/23 History
ustekinumab 90 mg/mL subcutaneous 90 mg SC Q6W crohn's disease 12/28/23 12/28/23 History
syringe (Stelara)
vitamins A,C,U-etso-ggozxf 2,148 2 tab PO BID Supplement 12/28/23 12/28/23 History
mcg-113 mg-45 mg-17.4 mg tablet
(PreserVision AREDS)
albuterol sulfate 90 mcg/actuation 2 puff inhalation Q6H PRN 12/30/23 Rx
aerosol inhaler shortness of breath or wheezing
#8.5 grams
cefdinir 300 mg capsule 300 mg PO Q12 #12 caps 12/30/23 Rx
doxycycline hyclate 100 mg capsule 100 mg PO Q12 #12 caps 12/30/23 Rx
Review of Systems
-
All complete 12 point ROS have been inquired and found negative other than stated in HPI
All other systems: Negative unless noted
Physical Exam
Vital Signs
Vital Signs
Temp Pulse Resp BP Pulse Ox
98.7 F 80 16 126/98 95
12/04/24 01:18 12/04/24 01:18 12/04/24 01:18 12/04/24 01:18 12/04/24 01:18
Lab Results
WBC 10.6 10^3/uL (4.8-10.8) 12/04/24 05:31
RBC 4.86 10^6/uL (4.70-6.10) 12/04/24 05:
Hgb 15.6 g/dL (13.0-18.0) 12/04/24 05:
Hct 45.4 % (39.0-52.0) 12/04/24 05:31
Plt Count 237 10^3/uL (130-400) 12/04/24 05:
Sodium 136 mmol/L (135-145) 12/04/24 05:
Potassium 4.4 mmol/L (3.5-5.1) 12/04/24 05:
Chloride 100 mmol/L (98-107) 12/04/24 05:
Carbon Dioxide 18 mmol/L (22-30) L 12/04/24 05:
BUN 43 mg/dl (9-20) H 12/04/24 05:31
Creatinine 3.5 mg/dL (0.7-1.3) H 12/04/24 05:
eGFR 17.67 12/04/24 05:31
Glucose 120 mg/dl (70-99) H 12/04/24 05:
Calcium 9.5 mg/dl (8.4-10.2) D 12/04/24 05:
Phosphorus 6.2 mg/dl (2.5-4.5) H 12/04/24 05:31
Albumin 5.9 g/dl (3.5-5.0) H 12/03/24 17:08
CT abd:
Right lower quadrant ileostomy. Previous proctocolectomy. Right inguinal hernia containing a dilated loop of small bowel that measures 3.8 cm in diameter. Upstream small bowel loops are dilated to 4.8 cm in diameter with fluid levels. No
extraluminal free air, fluid collection, or ascites.
PELVIS: The urinary bladder is unremarkable. The prostate gland is enlarged.
IMPRESSION:
Dilated small bowel loops in the right hemiabdomen with fluid levels proximal to a bowel containing right inguinal hernia. Findings could reflect a partial small bowel obstruction, although the patient is with a reported history of diarrhea. Limited
in the absence of oral contrast. An enteritis would be an alternative consideration. Proctocolectomy and right lower quadrant ileostomy.
Cholelithiasis.
Chronic pancreatitis.
Small right upper pole nephrolith.
Physical Exam
General: Awake, Alert, Oriented, AOx3, No Distress and Nontoxic
HEENT: EOMI, Anicteric, Dentition Intact, Facial Symmetry and Neck Supple
Respiratory: Clear, Normal Excursion and Nonlabored Respirations
Cardiac: S1/S2 and Regular Rate/Rhythm
Breast: Deferred by me
Abdomen: Soft, Nontender and Nondistended
Musculoskeletal: No Cyanosis and No Edema
Skin: No Rash
Neuro: Nonfocal/Grossly Intact
Psych: Mood/afflect pleasant, Insight/judgement good and Appropriate
Data Reviewed
-
Radiology: Report Reviewed by me and Discussed with Patient
Labs: Labs Reviewed by me and Discussed with Patient
Assessment/Plan
-
IMP:
ROSALINO with [id number] 1.4 in jul 2024 per PCP notes
A gap met acidosis
Gastroenteritis
Crohns colitis s/p ileostomy
HTN
GERD
h/o U retention
K stone noted on CT
PLan:
A/w GE, noted ROSALINO
suspect prerenal, U na low with vol depletion
UA with bacteruria, pyuria, follow bladder scan with h/o of retention
CT abd with out hydro, non obst stone
A gap met acidosis is improving, check L acid
cont bicarb IVF, monitor UOP
mild hypercalcemia on admit likely hemo concentration improving now
BP stable , hold EPlerenone
avoid nephrotoxins
d/w pt
[2024-12-04 11:40] VITALS: BP 118/90
[2024-12-04 14:45] LABS: Blood Urea Nitrogen 50 mg/dl (9-20); Calcium 9.4 mg/dl (8.4-10.2); Carbon Dioxide 19 mmol/L (22-30); Chloride 98 mmol/L (98-107); Estimated Creatinine Clearance 21 ml/min; Glucose 140 mg/dl (70-99); Lactic Acid 1.5 mmol/L (0.7-2.0); Potassium 3.7 mmol/L (3.5-5.1); Sodium 134 mmol/L (135-145); eGFR 18.97
[2024-12-04 15:16] VITALS: BP 122/80
[2024-12-04 15:19] VITALS: BMI 27.3
[2024-12-04] MEDS: DETROL LA 4 MG PO (17:18)
[2024-12-04] MEDS: PEPCID 20 MG PO (20:25)
[2024-12-04] MEDS: TOPROL XL 50 MG PO (21:20)
[2024-12-04 23:18] VITALS: BP 104/62
[2024-12-05] MEDS: HEPARIN SC (01:36)
--- NOTE | 2024-12-05 05:57 | W.PN.HOSP.TC ---
Today's Communication/Plan
-
cont IVF support
monitor renal function
diet as tolerated
pain/nausea control
Assessment / Plan
Assessment / Plan
IMPRESSION:
74-year-old male with history of Crohn's colitis urinary retention who presents to the emergency department with abdominal symptoms including 1 year of days of severe watery diarrhea, nausea vomiting, decreased p.o. intake. Has family members with
similar symptoms and they were together for a vacation recently. Suspect acute viral gastroenteritis. Patient has no recent episodes of Crohn's exacerbation. He has a ileostomy with clear brown watery output which she states is changed the bag
about once every hour yesterday but it has slowed down today. He has no systemic inflammatory signs such as fever or leukocytosis. Complications include ROSALINO with a creatinine of 3.9 up from a baseline of around 1. Has a history of urinary
retention, claims decreased urine output, urine output in the ED is 300 cc. No nephrolithiasis, no hydronephrosis and no bladder distention on CT scan. Denies any NSAID use. Given the degree of diarrhea, erythrocytosis to 17.7, elevated total
protein of 9.6 and albumin of 6 suspect marked intravascular contraction.
PLAN:
# ROSALINO
- Prerenal due to dehydration and diarrhea
- Hypovolemia w/o tachycardia on beta blocakde
- hold eplerenone
- bladder scan protocol with straight cath / [place] depending on retention > 400 ml (has chronic bladder dysfunction being followed by urology)
- Nephro eval appreciated
-cont IVF support
# Acute norovirus gastroenteritis
- isolation for now
- Supportive care
# Crohns colitis - Has been stable and currently no systemic evidence of inflammation
-Stable, monitor
# Essential hypertension
Continue home toprol XL, amlodipine at reduced dose, hold eplerenone secondary to ROSALINO
# Gastroesophageal reflux disease
Continue Pepcid & PPI
DVT PPX - heparin sq
Code status - full code
Discussed with patient and patient's Sonali
Total time spent to see the patient on the floor, examine the patient, review data and lab results, discuss treatment plan with patient, nursing staff around 45 minutes.
Physical Exam
General: No acute distress
HEENT: Normocephalic, Atraumatic, EOMI, MMM
Respiratory: Clear to Auscultation bilaterally
Cardiac: Normal S1/S2, Regular Rate and Rhythm
GI: Soft, Nontender, Nondistended, Normal Bowel Sounds, Ostomy with stool
Extremities: No Clubbing, Cyanosis, or Edema
Neuro: Nonfocal/Grossly Intact
Psych: Calm, Cooperative
Derm: No Visible lesions
Anticipated Discharge: Within 24 hours
Subjective/Interval History
-
Date of Service: December 05, 2024
Reports overall improvement in symptoms though diarrhea persists.
Objective Data
-
Labs:
Laboratory Results
12/05/24
06:00
Sodium Pending
Potassium Pending
Chloride Pending
Carbon Dioxide Pending
BUN Pending
Creatinine Pending
Glucose Pending
Calcium Pending
Vital Signs:
Vital Signs
Temp Pulse Resp BP Pulse Ox
98.1 F 63 18 104/62 98
12/04/24 23:18 12/04/24 23:18 12/04/24 23:18 12/04/24 23:18 12/04/24 23:18
I&O
12/03/24 12/04/24 12/05/24
06:59 06:59 06:59
Intake Total 1839 240 / 240
Balance 1839 240 / 240
[2024-12-05 06:00] VITALS: BMI 27.0
[2024-12-05 07:30] VITALS: BP 107/70
[2024-12-05] MEDS: SODIUM BICARBONATE 1075 MEQ IV (08:36)
[2024-12-05] MEDS: NORVASC 2.5 MG PO (08:56)
[2024-12-05] MEDS: PEPCID 20 MG PO (08:56)
[2024-12-05 09:03] LABS: Blood Urea Nitrogen 56 mg/dl (9-20); Calcium 9.4 mg/dl (8.4-10.2); Carbon Dioxide 31 mmol/L (22-30); Chloride 91 mmol/L (98-107); Estimated Creatinine Clearance 28 ml/min; Glucose 98 mg/dl (70-99); Potassium 4.3 mmol/L (3.5-5.1); Sodium 135 mmol/L (135-145); eGFR 27.79
[2024-12-05] MEDS: HEPARIN 5000 UNITS SC ×3 (09:08→23:04)
[2024-12-05] MEDS: MYRBETRIQ EXTENDED RELEASE 50 MG PO (09:10)
--- NOTE | 2024-12-05 10:34 | CM ---
modeling manager reviewed patient's chart and met with patient and patient lives with spouse in a split level home, patient is independent with adl's and ambulation, no dme, patient drives home when stable no needs.
PCP: Neelam Lama
Pharmacy: [facility]
Plan; Home when stable.
[2024-12-05] MEDS: SODIUM BICARBONATE IV (14:45)
--- NOTE | 2024-12-05 15:17 | W.PN.NEPH.PH ---
Today's Communication / Plan
-
Maintain isotonic saline
Follow BMP
Acute kidney injury continues to improve
Assessment/Plan
-
IMP:
ROSALINO with [id number] 1.4 in jul 2024 per PCP notes
A gap met acidosis
Gastroenteritis
Crohns colitis s/p ileostomy
HTN
GERD
h/o U retention
K stone noted on CT
PLan:
A/w GE, noted ROSALINO
Creatinine improving to 2.4 and remains subjectively nonoliguric
suspect prerenal, U na low with volume depletion
UA with bacteruria, pyuria, follow bladder scan with h/o of retention
CT abd with out hydro, non obst stone
A gap met acidosis is improved
Continue IV fluids but change to isotonic as acidosis resolved
mild hypercalcemia on admit likely hemo concentration improving now
BP stable , hold EPlerenone
avoid nephrotoxins
d/w pt
-
-
Date of Service: December 05, 2024
CC / HPI / ROS
-
Chief Complaint:
Acute kidney injury
History of Present Illness:
Creatinine improved to 2.4
Hemodynamically stable off Inspra
Review of Systems:
Subjectively nonoliguric
No fevers
Weights down
Labs
-
Labs:
WBC 10.6 10^3/uL (4.8-10.8) 12/04/24 05:31
RBC 4.86 10^6/uL (4.70-6.10) 12/04/24 05:31
Hgb 15.6 g/dL (13.0-18.0) 12/04/24 05:31
Hct 45.4 % (39.0-52.0) 12/04/24 05:31
Plt Count 237 10^3/uL (130-400) 12/04/24 05:31
Sodium 135 mmol/L (135-145) 12/05/24 07:51
Potassium 4.3 mmol/L (3.5-5.1) 12/05/24 07:51
Chloride 91 mmol/L (98-107) L 12/05/24 07:51
Carbon Dioxide 31 mmol/L (22-30) H 12/05/24 07:51
BUN 56 mg/dl (9-20) H 12/05/24 07:51
Creatinine 2.4 mg/dL (0.7-1.3) H 12/05/24 07:51
eGFR 27.79 12/05/24 07:51
Glucose 98 mg/dl (70-99) 12/05/24 07:51
Calcium 9.4 mg/dl (8.4-10.2) 12/05/24 07:51
Phosphorus 6.2 mg/dl (2.5-4.5) H 12/04/24 05:31
Albumin 5.9 g/dl (3.5-5.0) H 12/03/24 17:08
Physical Exam
-
Vital Signs:
Vital Signs
Temp Pulse Resp BP Pulse Ox
98.1 F 67 18 107/70 98
12/05/24 07:30 12/05/24 07:30 12/05/24 07:30 12/05/24 07:30 12/05/24 07:30
Cardiovascular:: Regular rate and rhythm
Extremity Edema:: None: Left:
[2024-12-05 15:20] VITALS: BP 102/70
[2024-12-05] MEDS: NSS 1000 IV (16:19)
[2024-12-05] MEDS: DETROL LA 4 MG PO (18:31)
[2024-12-05] MEDS: TOPROL XL 50 MG PO (23:04)
[2024-12-05 23:15] VITALS: BP 122/80
[2024-12-06 06:00] VITALS: BMI 26.7
[2024-12-06] MEDS: NSS 1000 IV (06:04)
--- NOTE | 2024-12-06 07:12 | W.PN.HOSP.TC ---
Today's Communication/Plan
-
discharge
Assessment / Plan
Assessment / Plan
IMPRESSION:
74-year-old male with history of Crohn's colitis urinary retention who presents to the emergency department with abdominal symptoms including 1 year of days of severe watery diarrhea, nausea vomiting, decreased p.o. intake. Has family members with
similar symptoms and they were together for a vacation recently. Suspect acute viral gastroenteritis. Patient has no recent episodes of Crohn's exacerbation. He has a ileostomy with clear brown watery output which she states is changed the bag
about once every hour yesterday but it has slowed down today. He has no systemic inflammatory signs such as fever or leukocytosis. Complications include ROSALINO with a creatinine of 3.9 up from a baseline of around 1. Has a history of urinary
retention, claims decreased urine output, urine output in the ED is 300 cc. No nephrolithiasis, no hydronephrosis and no bladder distention on CT scan. Denies any NSAID use. Given the degree of diarrhea, erythrocytosis to 17.7, elevated total
protein of 9.6 and albumin of 6 suspect marked intravascular contraction.
PLAN:
# ROSALINO
- Prerenal due to dehydration and diarrhea
- Hypovolemia w/o tachycardia on beta blockade
-Significantly improved/resolving
- cont hold eplerenone on discharge
- Nephro eval appreciated stable for discharge repeat BMP to follow up with primary care provider later this week.
# Acute norovirus gastroenteritis
Resolved at this time
# Crohns colitis - Has been stable and currently no systemic evidence of inflammation
-Stable, monitor
# Essential hypertension
Continue home toprol XL, amlodipine at reduced dose, hold eplerenone secondary to ROSALINO
# Gastroesophageal reflux disease
Continue Pepcid & PPI
DVT PPX - heparin sq
Code status - full code
Medically stable for discharge home with outpatient follow up recommendations.
Discussed with patient and patient's Sonali
Total Time Preparing Discharge ___40____ minutes including examination of the patient, summary of the hospital stay, instructions for continuing care to all relevant caregivers; and preparation of discharge records, prescriptions, and referral
forms if necessary.
Physical Exam
General: No acute distress
HEENT: Normocephalic, Atraumatic, EOMI, MMM
Respiratory: Clear to Auscultation bilaterally
Cardiac: Normal S1/S2, Regular Rate and Rhythm
GI: Soft, Nontender, Nondistended, Normal Bowel Sounds, Ostomy with stool
Extremities: No Clubbing, Cyanosis, or Edema
Neuro: Awake Alert Conversant Coherent
Psych: Calm, Cooperative
Derm: No Visible lesions
Anticipated Discharge: Today
Subjective/Interval History
-
Date of Service: December 06, 2024
Seen and examined at bedside in no acute distress sitting up comfortably in bed. Reports significant improvement in symptoms including diarrhea. Denies new acute issues. Reports overall feeling well. Eager to go home.
Objective Data
-
Labs:
Laboratory Results
12/06/24
06:00
Sodium Pending
Potassium Pending
Chloride Pending
Carbon Dioxide Pending
BUN Pending
Creatinine Pending
Glucose Pending
Calcium Pending
Vital Signs:
Vital Signs
Temp Pulse Resp BP Pulse Ox
98.0 F 74 18 122/80 94
12/05/24 23:15 12/05/24 23:15 12/05/24 23:15 12/05/24 23:15 12/05/24 23:15
I&O
12/05/24 12/06/24 12/07/24
06:59 06:59 06:59
Intake Total 720 / 720 2280 / 2280
Balance 720 / 720 2280 / 2280
[2024-12-06 07:33] VITALS: BP 117/67
[2024-12-06 09:30] LABS: Blood Urea Nitrogen 58 mg/dl (9-20); Calcium 9.1 mg/dl (8.4-10.2); Carbon Dioxide 32 mmol/L (22-30); Chloride 93 mmol/L (98-107); Estimated Creatinine Clearance 34 ml/min; Glucose 105 mg/dl (70-99); Magnesium 2.6 mg/dl (1.6-2.3); Phosphorus 4.5 mg/dl (2.5-4.5); Potassium 4.3 mmol/L (3.5-5.1); Sodium 136 mmol/L (135-145); eGFR 34.59
[2024-12-06] MEDS: HEPARIN 5000 UNITS SC (10:01)
[2024-12-06] MEDS: PEPCID 20 MG PO (10:01)
[2024-12-06] MEDS: MYRBETRIQ EXTENDED RELEASE 50 MG PO (10:01)
[2024-12-06] MEDS: NORVASC 2.5 MG PO (10:05)
--- NOTE | 2024-12-06 14:15 | CM ---
Chart reviewed home when stable.
Plan; Home with spouse when stable.
[2024-12-06 15:00] VITALS: BP 124/80
--- NOTE | 2024-12-06 15:48 | W.PN.NEPH.PH ---
Today's Communication / Plan
-
Stable for discharge off Inspra
Would have BMP sent to PCP later this week
Assessment/Plan
-
IMP:
ROSALINO with [id number] 1.4 in jul 2024 per PCP notes
A gap met acidosis
Gastroenteritis
Crohns colitis s/p ileostomy
HTN
GERD
h/o U retention
K stone noted on CT
PLan:
A/w GE, noted ROSALINO
Creatinine improving to 2.0 and remains subjectively nonoliguric
suspect prerenal, U na low with volume depletion
UA with bacteruria, pyuria, follow bladder scan with h/o of retention
CT abd with out hydro, non obst stone
A gap met acidosis is improved
mild hypercalcemia on admit likely hemo concentration improving now
BP stable , hold EPlerenone at discharge today
should have bmp with follow up to PCP later this week
avoid nephrotoxins
d/w pt
-
-
Date of Service: December 06, 2024
CC / HPI / ROS
-
Chief Complaint:
Acute kidney injury
History of Present Illness:
Creatinine improved to 2.0
Hemodynamically stable off Inspra
Review of Systems:
Subjectively nonoliguric
No fevers
Weights down
Labs
-
Labs:
WBC 10.6 10^3/uL (4.8-10.8) 12/04/24 05:31
RBC 4.86 10^6/uL (4.70-6.10) 12/04/24 05:31
Hgb 15.6 g/dL (13.0-18.0) 12/04/24 05:31
Hct 45.4 % (39.0-52.0) 12/04/24 05:31
Plt Count 237 10^3/uL (130-400) 12/04/24 05:31
Sodium 136 mmol/L (135-145) 12/06/24 07:44
Potassium 4.3 mmol/L (3.5-5.1) 12/06/24 07:44
Chloride 93 mmol/L (98-107) L 12/06/24 07:44
Carbon Dioxide 32 mmol/L (22-30) H 12/06/24 07:44
BUN 58 mg/dl (9-20) H 12/06/24 07:44
Creatinine 2.0 mg/dL (0.7-1.3) H 12/06/24 07:44
eGFR 34.59 12/06/24 07:44
Glucose 105 mg/dl (70-99) H 12/06/24 07:44
Calcium 9.1 mg/dl (8.4-10.2) 12/06/24 07:44
Phosphorus 4.5 mg/dl (2.5-4.5) 12/06/24 07:44
Albumin 5.9 g/dl (3.5-5.0) H 12/03/24 17:08
Physical Exam
-
Vital Signs:
Vital Signs
Temp Pulse Resp BP Pulse Ox
97.8 F 63 18 117/67 95
12/06/24 07:33 12/06/24 10:05 12/06/24 07:33 12/06/24 10:05 12/06/24 07:33
Cardiovascular:: Regular rate and rhythm
Extremity Edema:: None: Left:
--- NOTE | 2024-12-06 17:01 | W.DCSUMMARY ---
Discharge Summary
Discharge Data
Date of Admission: 12/03/24
Date of Discharge: 12/06/24
-
Pending Results: No
Discharge Plan
-
Patient Disposition: Home (Routine Discharge)
Discharge Diagnosis/Procedures: Acute Kidney Injury
Acute Gastroenteritis Secondary to Norovirus
Chronic Pancreatitis
Condition: Fair
Diet: Low Residue
Additional Diets: Continue with Low Residue Diet for 1 day then advance as tolerated
Activity: As tolerated
Driving Restrictions: As prior to admission
Bathing Restrictions: None
Blood Work: Please Repeat BMP in 2 days of discharge, results to be forwarded to primary care provider. Script provided to facilitate.
Activity Restrictions/Additional Instructions:
Please follow up with primary care provider in 1 week of discharge.
Amlodipine has been reduced from 5 mg to 2.5 mg daily due to low pressures, likely due to hypovolemia from gastroenteritis. Please keep a daily log of your pressures at home to discuss with your primary care provider in follow up for further
adjustment of your antihypertensive medications as necessary.
Pepcid has been reduced from 20 mg twice a day to daily due to acute kidney injury, resolving.
It is recommended to continue hold Eplerenone at this time due to resolving acute kidney injury and low pressures. Follow up with primary care provider (or prescribing doctor) to determine when safe to resume, if necessary to resume, and/or if an
alternative agent is required instead.
Please take medications as prescribed/recommended and follow up with primary care provider and/or other healthcare provider involved in your care for refills and/or further adjustment to your medication regimen as necessary.
Referrals:
Estehr London MD [Family Provider] - in one week
Prescriptions:
New
amlodipine 2.5 mg Tablet
2.5 mg PO DAILY Qty: 30 0RF
Continued
metoprolol succinate [Toprol XL] 50 mg Tablet Extended Release 24 Hr
50 mg PO DAILY
Stelara 90 mg/mL Syringe
90 mg SC Q6W
mirabegron [Myrbetriq] 50 mg Tablet Extended Release 24 Hr
50 mg PO DAILY
loperamide 2 mg Tablet
2 mg PO BID
cyanocobalamin (vitamin B-12) 1,000 mcg Tablet
1,000 mcg PO DAILY
therapeutic multivitamin Tablet
1 tab PO DAILY
tadalafil [Cialis] 5 mg Tablet
5 mg PO QPM
solifenacin [Vesicare] 10 mg Tablet
10 mg PO QPM
PreserVision AREDS 2,148 mcg-113 mg-45 mg-17.4mg Tablet
1 tab PO BID
omeprazole 40 mg Capsule,Delayed Release(Dr/Ec)
40 mg PO DAILY
cranberry 450 mg Tablet
450 mg PO DAILY
Changed
famotidine [Pepcid] 20 mg Tablet
20 mg PO DAILY Qty: 0 0RF
Held
eplerenone 50 mg Tablet
50 mg PO QPM
Hold Instructions: Follow up with primary care provider (or prescribing doctor) to determine when safe to resume, if necessary to resume, and/or if an alternative agent is required instead.
Discontinued
amlodipine [Norvasc] 5 mg Tablet
5 mg PO DAILY
Discharge Orders:
Discharge Patient (As Directed); Ordered 12/06/24
Ordered By: Lizette Lee
Discharge Date and Time
Print Language: DIVEHI
[2024-12-06] MEDS: HEPARIN SC (18:05)
[2024-12-06] MEDS: DETROL LA PO (18:05)
[2024-12-07 13:50] LABS: Calprotectin, Fecal 29 ug/g (<=49)
== END 2024-12-06 18:27 | disposition home or self-care (01) | DRG 392 ==
LOC: 4 WEST ACU 22:51
PROVIDERS: Family Medicine; ADMITTING PHYSICIAN Internal Medicine; ATTENDING PHYSICIAN Internal Medicine; CONSULT PHYSICIAN Internal Medicine; EMERGENCY PHYSICIAN Emergency Medicine; FAMILY PHYSICIAN Family Medicine
DX: A08.11 Acute gastroenteropathy due to Norwalk agent (principal); N17.9 Acute kidney failure, unspecified; K50.10 Crohn's disease of large intestine without complications; K86.1 Other chronic pancreatitis; E86.0 Dehydration; N18.31 Chronic kidney disease, stage 3a; N40.1 Benign prostatic hyperplasia with lower urinary tract symptoms; K21.9 Gastro-esophageal reflux disease without esophagitis; Z87.891 Personal history of nicotine dependence
CPT/HCPCS: 74176; 80048; 80053; 81003; 81015; 82570; 83605; 83690; 83735; 83935; 83993; 84100; 84156; 84300; 85025; 85027; 85652; 86140; 87045; 87046; 87086; 87324; 87427; 87449; 87798; 89055; 96361; 96374; 99284; J7030

== ENCOUNTER → 2024-12-19 10:33 | Outpatient (REF) | payer MEDICARE, OTHER, SELFPAY ==
[2024-12-19 12:30] LABS: Blood Urea Nitrogen 22 mg/dl (9-20); Calcium 9.1 mg/dl (8.4-10.2); Carbon Dioxide 25 mmol/L (22-30); Chloride 107 mmol/L (98-107); Glucose 84 mg/dl (70-99); Potassium 4.4 mmol/L (3.5-5.1); Sodium 141 mmol/L (135-145); eGFR 48.85
== END ==
LOC: HWLAB 10:33
PROVIDERS: ATTENDING PHYSICIAN Internal Medicine; FAMILY PHYSICIAN Emergency Medicine
DX: R19.7 Diarrhea, unspecified (principal)
CPT/HCPCS: 36415; 80048

== ENCOUNTER 2025-01-02 11:04 | Emergency (ER) | payer MEDICARE, OTHER, SELFPAY ==
[2025-01-02 11:07] VITALS: BP 150/90
--- NOTE | 2025-01-02 12:44 | ED.GENMED ---
History of Present Illness
<RUPESH Franklin - Last Filed: 01/02/25 17:16>
General
Chief Complaint: Male Genito-Urinary Symptoms
Source: patient
Exam Limitations: none
Time Seen by Provider: 01/02/25 12:21
Nursing documentation reviewed up to this point in time: agreed with
History of Present Illness
History of Present Illness:
Patient is a 74-year-old male who presents to the ER for evaluation of difficulty urinating. Patient had right inguinal hernia repair 6 days ago at the [facility] the [facility]. He was urinating fine postop day 1 and
2 however then developed difficulty urinating, urgency and decreased urine output. He has also noticed increased swelling to the skin of the penis in addition to swelling of his scrotum.
Past History
<RUPESH Franklin - Last Filed: 01/02/25 17:16>
Past History
ED Past Medical History: HTN and Other (Crohn's disease)
ED Past Surgical History: Orthopedic and Other (Colostomy. Tonsillectomy)
Social History
Tobacco: Non-smoker
Personal:
Living: with family
Review of Systems
<RUPESH Franklin - Last Filed: 01/02/25 17:16>
Review of Systems
Allergies reviewed?: Yes
All Other Systems: ROS reviewed and negative except as documented in HPI and ROS
Constitutional: Reports no symptoms; Denies fever
Respiratory: Reports no symptoms
Cardiac: Reports no symptoms
ABD/GI: Reports other (lower and fullness )
: Reports dysuria and other (swelling to penis )
Musculoskeletal: Reports no symptoms
Skin: Reports no symptoms
Neurological: Reports no symptoms
Psychiatric: Reports no symptoms
Phy Exam
<RUPESH Franklin - Last Filed: 01/02/25 17:16>
General Physical Exam
General Presentation: no apparent distress
General age: appears stated age
General Skin: warm and dry
General Habitus: normal
General Mental: alert
General Hydration: appears well hydrated
Gastrointestinal Exam
Gastrointestinal Exam: other (+ tender over suprapubic region + healing right inguinal incision, + scrotum swelling/ecchymosis + swelling to foreskin unable to tack puller machine distal penis )
Neurological Exam
Neurological Exam: alert and oriented x3
Musculoskeletal Exam
Musculoskeletal Exam: full ROM
Skin Exam
Skin Exam: normal color and warm/dry
Psychiatric Exam
Psychiatric Exam: normal mood/affect
Course
<RUPESH Franklin - Last Filed: 01/02/25 17:16>
Orders/Labs/Results
Orders:
Orders
01/02/25 11:32
Urine Culture Urgent
HOME Source: U
Specimen Description:
01/02/25 13:13
US Scrotum Stat
Comment:
Reason For Exam: swelling
01/02/25 13:33
Complete Blood Count/With Diff Urgent
Comprehensive Metabolic Panel Urgent
Urinalysis Reflex To Culture Urgent
Date Specimen was Collected: 01/02/25
Time Specimen was Collected: 13:30
Urine Microscopic Reflex Cult Urgent
Urine Culture Urgent
HOME Source: U
Specimen Description:
Date Specimen was Collected: 01/02/25
Time Specimen was Collected: 13:30
01/02/25 16:13
US Renal Only W/O Bladder Urgent
Comment:
Reason For Exam: elevated renal function
Abnormal Lab Results
01/02/25
13:33
RBC 3.99 L 10^6/uL
(4.70-6.10)
Hgb 12.6 L g/dL
(13.0-18.0)
Hct 37.7 L %
(39.0-52.0)
MCV 94.5 H fL
(80.0-94.0)
MCH 31.6 H pg
(27.0-31.0)
Absolute Monos (auto) 1.1 H 10^3/uL
(0.1-0.6)
Lymphocytes % 16.1 L %
(20.5-51.1)
Monocytes % 12.9 H %
(1.7-9.3)
BUN 24 H mg/dl
(9-20)
Creatinine 1.8 H mg/dL
(0.7-1.3)
Glucose 121 H mg/dl
(70-99)
Leukocyte Esterase Rfl 1+ A
(Negative)
Urine WBC (Reflex) 16-20 A /HPF
(0-5)
Urine Albumin (Reflex) 1+ A
(Neg - Trace)
01/02/25 13:33
01/02/25 13:33
Vital Signs
Initial and Last Documented VS:
Initial Vital Signs
Temp Pulse Resp BP Pulse Ox
98.5 F 75 18 150/90 96
01/02/25 11:07 01/02/25 11:07 01/02/25 11:07 01/02/25 11:07 01/02/25 11:07
Last Documented Vital Signs
Temp Pulse Resp BP Pulse Ox
98.5 F 70 18 128/78 99
01/02/25 11:07 01/02/25 15:31 01/02/25 15:31 01/02/25 15:31 01/02/25 15:31
<Riddhi Hernández MD - Last Filed: 01/02/25 15:32>
Orders/Labs/Results
Orders:
Orders
01/02/25 11:32
Urine Culture Urgent
HOME Source: U
Specimen Description:
01/02/25 13:13
US Scrotum Stat
Comment:
Reason For Exam: swelling
01/02/25 13:33
Complete Blood Count/With Diff Urgent
Comprehensive Metabolic Panel Urgent
Urinalysis Reflex To Culture Urgent
Date Specimen was Collected: 01/02/25
Time Specimen was Collected: 13:30
Urine Microscopic Reflex Cult Urgent
Urine Culture Urgent
HOME Source: U
Specimen Description:
Date Specimen was Collected: 01/02/25
Time Specimen was Collected: 13:30
01/02/25 16:13
US Renal Only W/O Bladder Urgent
Comment:
Reason For Exam: elevated renal function
Abnormal Lab Results
01/02/25
13:33
RBC 3.99 L 10^6/uL
(4.70-6.10)
Hgb 12.6 L g/dL
(13.0-18.0)
Hct 37.7 L %
(39.0-52.0)
MCV 94.5 H fL
(80.0-94.0)
MCH 31.6 H pg
(27.0-31.0)
Absolute Monos (auto) 1.1 H 10^3/uL
(0.1-0.6)
Lymphocytes % 16.1 L %
(20.5-51.1)
Monocytes % 12.9 H %
(1.7-9.3)
BUN 24 H mg/dl
(9-20)
Creatinine 1.8 H mg/dL
(0.7-1.3)
Glucose 121 H mg/dl
(70-99)
Leukocyte Esterase Rfl 1+ A
(Negative)
Urine WBC (Reflex) 16-20 A /HPF
(0-5)
Urine Albumin (Reflex) 1+ A
(Neg - Trace)
01/02/25 13:33
01/02/25 13:33
Vital Signs
Initial and Last Documented VS:
Initial Vital Signs
Temp Pulse Resp BP Pulse Ox
98.5 F 75 18 150/90 96
01/02/25 11:07 01/02/25 11:07 01/02/25 11:07 01/02/25 11:07 01/02/25 11:07
Last Documented Vital Signs
Temp Pulse Resp BP Pulse Ox
98.5 F 70 18 128/78 99
01/02/25 11:07 01/02/25 15:31 01/02/25 15:31 01/02/25 15:31 01/02/25 15:31
<Erika Wilkinson MD - Last Filed: 01/02/25 17:56>
Orders/Labs/Results
Orders:
Orders
01/02/25 11:32
Urine Culture Urgent
HOME Source: U
Specimen Description:
01/02/25 13:13
US Scrotum Stat
Comment:
Reason For Exam: swelling
01/02/25 13:33
Complete Blood Count/With Diff Urgent
Comprehensive Metabolic Panel Urgent
Urinalysis Reflex To Culture Urgent
Date Specimen was Collected: 01/02/25
Time Specimen was Collected: 13:30
Urine Microscopic Reflex Cult Urgent
Urine Culture Urgent
HOME Source: U
Specimen Description:
Date Specimen was Collected: 01/02/25
Time Specimen was Collected: 13:30
01/02/25 16:13
US Renal Only W/O Bladder Urgent
Comment:
Reason For Exam: elevated renal function
Abnormal Lab Results
01/02/25
13:33
RBC 3.99 L 10^6/uL
(4.70-6.10)
Hgb 12.6 L g/dL
(13.0-18.0)
Hct 37.7 L %
(39.0-52.0)
MCV 94.5 H fL
(80.0-94.0)
MCH 31.6 H pg
(27.0-31.0)
Absolute Monos (auto) 1.1 H 10^3/uL
(0.1-0.6)
Lymphocytes % 16.1 L %
(20.5-51.1)
Monocytes % 12.9 H %
(1.7-9.3)
BUN 24 H mg/dl
(9-20)
Creatinine 1.8 H mg/dL
(0.7-1.3)
Glucose 121 H mg/dl
(70-99)
Leukocyte Esterase Rfl 1+ A
(Negative)
Urine WBC (Reflex) 16-20 A /HPF
(0-5)
Urine Albumin (Reflex) 1+ A
(Neg - Trace)
01/02/25 13:33
01/02/25 13:33
Vital Signs
Initial and Last Documented VS:
Initial Vital Signs
Temp Pulse Resp BP Pulse Ox
98.5 F 75 18 150/90 96
01/02/25 11:07 01/02/25 11:07 01/02/25 11:07 01/02/25 11:07 01/02/25 11:07
Last Documented Vital Signs
Temp Pulse Resp BP Pulse Ox
98.5 F 70 18 128/78 99
01/02/25 11:07 01/02/25 15:31 01/02/25 15:31 01/02/25 15:31 01/02/25 15:31
<Zohra Siu PA-C - Last Filed: 01/02/25 18:14>
Orders/Labs/Results
Orders:
Orders
01/02/25 11:32
Urine Culture Urgent
HOME Source: U
Specimen Description:
01/02/25 13:13
US Scrotum Stat
Comment:
Reason For Exam: swelling
01/02/25 13:33
Complete Blood Count/With Diff Urgent
Comprehensive Metabolic Panel Urgent
Urinalysis Reflex To Culture Urgent
Date Specimen was Collected: 01/02/25
Time Specimen was Collected: 13:30
Urine Microscopic Reflex Cult Urgent
Urine Culture Urgent
HOME Source: U
Specimen Description:
Date Specimen was Collected: 01/02/25
Time Specimen was Collected: 13:30
01/02/25 16:13
US Renal Only W/O Bladder Urgent
Comment:
Reason For Exam: elevated renal function
Abnormal Lab Results
01/02/25
13:33
RBC 3.99 L 10^6/uL
(4.70-6.10)
Hgb 12.6 L g/dL
(13.0-18.0)
Hct 37.7 L %
(39.0-52.0)
MCV 94.5 H fL
(80.0-94.0)
MCH 31.6 H pg
(27.0-31.0)
Absolute Monos (auto) 1.1 H 10^3/uL
(0.1-0.6)
Lymphocytes % 16.1 L %
(20.5-51.1)
Monocytes % 12.9 H %
(1.7-9.3)
BUN 24 H mg/dl
(9-20)
Creatinine 1.8 H mg/dL
(0.7-1.3)
Glucose 121 H mg/dl
(70-99)
Leukocyte Esterase Rfl 1+ A
(Negative)
Urine WBC (Reflex) 16-20 A /HPF
(0-5)
Urine Albumin (Reflex) 1+ A
(Neg - Trace)
01/02/25 13:33
01/02/25 13:33
Vital Signs
Initial and Last Documented VS:
Initial Vital Signs
Temp Pulse Resp BP Pulse Ox
98.5 F 75 18 150/90 96
01/02/25 11:07 01/02/25 11:07 01/02/25 11:07 01/02/25 11:07 01/02/25 11:07
Last Documented Vital Signs
Temp Pulse Resp BP Pulse Ox
98.5 F 70 18 128/78 99
01/02/25 11:07 01/02/25 15:31 01/02/25 15:31 01/02/25 15:31 01/02/25 15:31
<RUPESH Franklin - Last Filed: 01/02/25 17:16>
MDM/Problems Addressed
MDM/Problems Addressed:
Patient is a 74-year-old male with recent right inguinal hernia surgery Estefani presented for urinary retention and swelling along the penis.
Bladder scan showed 1800 mL of urine Monroe catheter was successfully inserted and patient with relief. On exam patient had obvious swelling around the penis initial concern for paraphimosis however ice applied and I was able to retract the
foreskin.Pt was eval by ED physician
Discussed case with urology, Dr. Carmona who will evaluate patient.
Patient's creatinine is 1.8 today. he does have recent creatinines as high as 3.9 (when he was recently admitted from acute kidney injury due to viral syndrome).
his last creatinine however was 1.5 on December 19 and this finding of 1.8 is likely from urinary retention. I Did review this with nephrology we will plan to have him have this rechecked as an outpatient.
<Zohra Siu PA-C - Last Filed: 01/02/25 18:14>
*Critical Care Note
Total Time (30-74mins, 75-104mins- exclusive of procedures): Not Applicable
<Erika Wilkinson MD - Last Filed: 01/02/25 17:56>
Update Note
Update Note:
5:45 PM patient is resting comfortably. Patient evaluated by Dr. Carmona who feels that patient has scrotal edema due to third spacing. Patient instructed to elevate and apply heat to his scrotal area. Additionally, patient will go home with a
Monroe catheter due to his acute urinary retention and instructed to follow-up with his own surgeon and urologist.
<Zohra Siu PA-C - Last Filed: 01/02/25 18:14>
Update Note
Update Note:
5:45 PM patient is resting comfortably. Patient evaluated by Dr. Carmona who feels that patient has scrotal edema due to third spacing. Patient instructed to elevate and apply heat to his scrotal area. Additionally, patient will go home with a
Monroe catheter due to his acute urinary retention and instructed to follow-up with his own surgeon and urologist.
5:50 PM Discharge plans and follow up discussed with patient
ED Attending Note
<RUPESH Franklin - Last Filed: 01/02/25 17:16>
-
Portions of this chart may have been created with voice recognition software.� Occasional wrong word or��sound alike� substitutions may have occurred due to the inherent limitations of voice recognition software.
<Riddhi Hernández MD - Last Filed: 01/02/25 15:32>
ED Attending Note
Patient seen and examined by attending physician: Yes
I performed the substantive portion of visit, reviewed & personally made and approve the management plan that is documented in note by myself or NATALIE.: Yes
ED Attending Note:
I have seen and evaluated the patient with a [id number]-ielo encounter. I have spoken to the [PA] and involved in the medical history, the physical exam, medical decision making.
Evaluation and management service: agree unless noted differently below.
Results interpretation: agree unless noted differently below.
74-year-old woman presenting to the emergency department with difficulty with urination. He did have a right inguinal hernia repair last Thursday. He states that he was able to urinate after the surgery. However since then he feels as if he is
having retention of his urine and he is having significant swelling to his scrotum and his foreskin. He states that his foreskin normally stopped right below the tip of the penis. However he is never had any difficulty with retractions. Today he
states that it looks like it is startling.
On exam patient is resting comfortably. There is significant swelling to the foreskin as well as the scrotum. The foreskin is so swollen that it is unable to be retracted forward. He does have diffuse tenderness over his scrotum.
We did complete a bladder scan he was retaining 1800ml. Nursing was able to place a Monroe. The retention certainly could be secondary to the foreskin swelling. I am concerned about paraphimosis given the amount of swelling. Will place an ice
pack to see if that helps with swelling and try again. In the interim we will also reach out to urology. Will also obtain a scrotal ultrasound as well as a urine sample.
On reevaluation the ice has helped.. There is some movement of the foreskin and it is able to be pulled over the glans. We did discuss with urology. They will evaluate patient. Dispo pending per urology recommendations.
Discharge Plan
Departure
Patient Disposition: Home (Routine Discharge)
Date of Disposition: 01/02/25
Time of Disposition: 17:50
Patient with high blood pressure during this ER visit?: Yes
Condition: Good
Discharge Problem:
Acute urinary retention
Instructions: How to Care for Your Monroe Catheter, Male, Urinary Retention (DC), BLOOD PRESSURE
Prescriptions:
No Action
metoprolol succinate [Toprol XL] 50 mg Tablet Extended Release 24 Hr
50 mg PO DAILY
Stelara 90 mg/mL Syringe
90 mg SC Q6W
mirabegron [Myrbetriq] 50 mg Tablet Extended Release 24 Hr
50 mg PO DAILY
loperamide 2 mg Tablet
2 mg PO BID
cyanocobalamin (vitamin B-12) 1,000 mcg Tablet
1,000 mcg PO DAILY
therapeutic multivitamin Tablet
1 tab PO DAILY
eplerenone 50 mg Tablet
50 mg PO QPM
tadalafil [Cialis] 5 mg Tablet
5 mg PO QPM
solifenacin [Vesicare] 10 mg Tablet
10 mg PO QPM
PreserVision AREDS 2,148 mcg-113 mg-45 mg-17.4mg Tablet
1 tab PO BID
omeprazole 40 mg Capsule,Delayed Release(Dr/Ec)
40 mg PO DAILY
cranberry 450 mg Tablet
450 mg PO DAILY
amlodipine 2.5 mg Tablet
2.5 mg PO DAILY Qty: 30 0RF
famotidine [Pepcid] 20 mg Tablet
20 mg PO DAILY Qty: 0 0RF
Referrals:
Neelam Ramsey MD [Family Provider] -
Stepan Carmona MD [Active] -
Activity Restrictions/Additional Instructions:
Please call Dr. Dumont tomorrow morning to schedule an appointment for monroe removal and reassessment and to have your kidney function rechecked.
Please keep the scrotum elevated. You can apply warm compress to the area.
Please call your general surgeon for a follow up appointment.
PLEASE RETURN TO THE ER SHOULD YOU DEVELOP CHEST PAIN, SHORTNESS OF BREATH, FEVERS OR CHILLS, ABDOMINAL PAIN, INTRACTABLE NAUSEA OR VOMITING, ANY OTHER SIGNS OR SYMPTOMS WORRISOME TO YOU
Interventions
Interventions:
*Risk Screen - Suicide Last Done: 01/02/25 11:07
*General Assessment Last Done: 01/02/25 11:07
*Neglect/Abuse Screening Last Done: 01/02/25 11:07
ED-Male Genitourinary Assessment Last Done: 01/02/25 13:30
Discharge Date and Time
Print Language: KAZAKH
[2025-01-02 13:30] VITALS: BMI 29.0
[2025-01-02 13:53] LABS: Urine Albumin 1+ (Neg - Trace); Urine Bilirubin Negative (Negative); Urine Character Clear (Clear); Urine Color Yellow; Urine Glucose Negative (Negative); Urine Ketone Negative (Negative); Urine Leukocyte 1+ (Negative); Urine Nitrite Negative (Negative); Urine Occult Blood Negative (Negative); Urine Specific Gravity 1.015 (<1.030); Urine Urobilinogen Negative (Neg - 1+)
[2025-01-02 13:58] LABS: % Basophils 0.2 % (0-2); % Eosinophils 0.9 % (0-6); % Immature Granulocytes 0.2 % (0-0.5); % Lymphocytes 16.1 % (20.5-51.1); % Monocytes 12.9 % (1.7-9.3); % Neutrophils 69.7 % (42.2-75.2); Absolute Eosinophils 0.1 10^3/uL (0-0.7); Absolute Lymphocytes 1.4 10^3/uL (1.2-3.4); Absolute Monocytes 1.1 10^3/uL (0.1-0.6); Absolute Neutrophils 6.1 10^3/uL (1.4-6.5); Hematocrit 37.7 % (39.0-52.0); Hemoglobin 12.6 g/dL (13.0-18.0); Mean Corp Hgb Conc. 33.4 g/dL (33.0-37.0); Mean Corpuscular Hgb 31.6 pg (27.0-31.0); Mean Corpuscular Volume 94.5 fL (80.0-94.0); Mean Platelet Volume 8.8 fL (7.4-10.4); Nucleated Red Blood Cells % 0 % (-); Platelet Count 337 10^3/uL (130-400); Red Blood Cell Count 3.99 10^6/uL (4.70-6.10); Red Cell Dist. Width 13.2 % (11.5-14.5); White Blood Cell Count 8.7 10^3/uL (4.8-10.8)
[2025-01-02 14:07] LABS: ALT (SGPT) 28 U/L (0-50); AST (SGOT) 30 U/L (17-59); Alkaline Phosphatase 95 U/L (38-126); Blood Urea Nitrogen 24 mg/dl (9-20); Calcium 9.3 mg/dl (8.4-10.2); Carbon Dioxide 24 mmol/L (22-30); Chloride 106 mmol/L (98-107); Estimated Creatinine Clearance 38 ml/min; Glucose 121 mg/dl (70-99); Potassium 4.8 mmol/L (3.5-5.1); Sodium 139 mmol/L (135-145); Total Bilirubin 1.1 mg/dl (0.2-1.3); eGFR 39.25
[2025-01-02 15:14] LABS: Urine Mucus Many
[2025-01-02 15:15] LABS: Urine Amorphous Seen; Urine Squamous Cell 0-2 /LPF (Few)
[2025-01-02 15:16] LABS: Urine Red Blood Cell 0-2 /HPF (0-2)
[2025-01-02 15:17] LABS: Urine White Cell 16-20 /HPF (0-5)
[2025-01-02 15:31] VITALS: BP 128/78
--- NOTE | 2025-01-02 18:07 | W.PN.URO.CBU ---
Today's Communication / Plan
-
referred to attending surgeons see dictation but heat elevation teach monroe
Assessment / Plan
-
acute on chronic retention keep monroe 1800cc and swollen sq tissue s/p hernia heat elevate see attending mds
Diagnosis
-
Date of Service: January 02, 2025
-
Patient Diagnosis:swollen peins and scrotum due to third space fluid and separate issue acute urinary retention with chronic retention
Post Op Day:
Subjective
-
cannot void
Objective
-
Vital Signs
Temp Pulse Resp BP Pulse Ox
98.5 F 70 18 128/78 99
01/02/25 11:07 01/02/25 15:31 01/02/25 15:31 01/02/25 15:31 01/02/25 15:31
Intake and Output
01/01/25 01/02/25 01/03/25
06:59 06:59 06:59
Output Total 800 / 800
Balance -800 / -800
Output:
Urine, Monroe 800 / 800
Laboratory Results
01/02/25 13:33
01/02/25 13:33
Review of Systems
-
: Difficulty Voiding and Other (swollen penis and scrotum)
Physical Exam
-
General - well developed, well nourished, no acute distress
Chest - clear bilaterally
Abdomen - soft, non-tender, positive bowel sounds, no CVAT, no incisional pain or distention
Genitalia -penis swollen nl glams eccymopses throuhout basr asn scrotum all third spaced no hydrocles no cellultis bulging area rt ing canal non flocculant
Rectal - normal
Skin - warm & dry with no rash
Neuro - AOx3, no motor deficits
Extremities - no clubbing, no cyanosis, no edema
Incision - clean, dry
Dressing - clean, dry, intact
Care Review
Data Reviewed
Discussed with: Hospitalist and Family
Ultrasound: Image Pers Reviewed
Total Time Spent with Patient (in minutes): 55 minutes
== END 2025-01-02 18:30 | disposition home or self-care (01) ==
LOC: EMR 11:04
PROVIDERS: Nurse Practitioner; EMERGENCY PHYSICIAN Student in an Organized Health Care Education/Training Program; FAMILY PHYSICIAN Emergency Medicine; OTHER PHYSICIAN Specialist
DX: R33.8 Other retention of urine (principal); N50.89 Other specified disorders of the male genital organs; I10 Essential (primary) hypertension; K50.90 Crohn's disease, unspecified, without complications; Z93.3 Colostomy status; Z98.890 Other specified postprocedural states
CPT/HCPCS: 51702; 99284; 76775; 76870; 80053; 81003; 81015; 85025; 87086; 93976

== ENCOUNTER → 2025-02-15 12:18 | Outpatient (REF) | payer MEDICARE, OTHER, SELFPAY | LOC: RAD 12:18 | PROVIDERS: ATTENDING PHYSICIAN Nurse Practitioner Family | DX: R05.8 Other specified cough (principal) | CPT/HCPCS: 71046 ==